=== PATIENT | male | born 1955 | race Caucasian/White ===

== ENCOUNTER 2020-08-24 10:37 | Emergency (ER) | payer MEDICARE, OTHER, SELFPAY ==
[2020-08-24 10:44] VITALS: BP 138/82; PULSE 87; RESP 18; TEMP 36.7; O2SAT 99; BMI 32.1
--- NOTE | 2020-08-24 13:08 | ED_ITS ---
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 States pain on the left side goes to the left flank area diffuse on the left side. There is no associated nausea vomiting or diarrhea. There is no dysuria. There is no hematuria. No fever or chills. MD elicited complaint: abdominal pain Pertinent past history: diverticulitis Onset (ago): week(s) Pain Consistency: constant Location: LUQ and LLQ Severity: mild Quality: aching Radiation: L flank Migration to: LUQ, LLQ and L flank Exacerbating factors: nothing Relieving factors: nothing Associated symptoms: denies other symptoms Related Data Previous Rx's Medication Instructions Recorded dicyclomine 20 mg PO BID #20 tab 08/24/20 oxycodone-acetaminophen [Percocet] 1 tab PO Q8H PRN #7 tab 08/24/20 Allergies Allergy/AdvReac Type Severity Reaction Status Date / Time metformin [METFORMIN] AdvReac Intermediate DIARRHEA Verified 08/24/20 14:03 clopidogrel [From PLAVIX] AdvReac Unknown HEADACHES Verified 08/24/20 14:03 Review of Systems Review of Systems Constitutional: No Weight loss, No Fever, No Chills, No Night Sweats, No Fatigue, No Malaise ENT/Mouth: No Hearing loss, No Ear Pain, No Nasal Congestion, No Sinus Pain, No Hoarseness, No sore throat, No Rhinorrhea, No Swallowing Difficulty Eyes: No Eye Pain, No Swelling, No Redness, No Foreign Body, No Discharge, No Vision Changes Cardiovascular: No Chest Pain, No SOB, No Dyspnea on Exertion, No Orthopnea, No Edema, No Palpitations Respiratory: No Cough, No Sputum, No Wheezing, No Smoke Exposure, No Dyspnea Gastrointestinal: No Nausea, No Vomiting, No Diarrhea, No Constipation, + abdominal Pain, No Hematochezia, No Melena Genitourinary: no irregular bleeding, No Dysuria, No Urinary Frequency, No Hematuria, No Urinary Incontinence, No Urgency, No Flank Pain, No Urinary Flow Changes, No Hesitancy Musculoskeletal: No joint pain, No Myalgias, No Joint Swelling Skin: No Skin Lesions, No rash Neuro: No Weakness, No Numbness, No Paresthesias, No Loss of Consciousness, No Dizziness, No Headache Psych: No Anxiety/Panic, No Depression, No SI/HI/AH/VH, No Social Issues, Heme/Lymph: No Bruising, No Bleeding,No Lymphadenopathy Endocrine: No Polyuria, No Polydipsia, No Temperature Intolerance Yes all other systems are reviewed and are negative Physical Exam Vital Signs: Vital Signs: Vital Signs Temp Pulse Resp BP Pulse Ox 08/24/20 13:55 98.3 F 84 18 119/78 08/24/20 10:44 98.0 F 87 18 138/82 99 Body Mass Index 32.1 Const: General: cooperative and healthy appearing; No acute distress or intox icated appearing Nutritional Appearance: average body habitus Orientation/consciousness: patient oriented x3 HENMT: Head: Yes normal to inspection Ears: hearing grossly normal bilaterally Eyes: General: appearance normal, both eyes and all related structures Visual Prajapati: normal visual prajapati by confrontation Neck: Neck: Yes normal visual inspection and No tender Thyroid: Thyroid normal Chest: Chest palpation & inspection: normal inspection of the chest Resp: Effort & Inspection: normal respiratory effort Cardio: Jugular venous distension: no JVD GI: Inspection: Yes normal to inspection Percussion: Yes normal to percussion Auscultation: normal bowel sounds : General: Yes no CVA tenderness Back/Spine/Pelvis: Back: no CVA tenderness Skin: General skin exam: no rashes or lesions noted Neuro: General: patient oriented x3 Extrem: General: Yes normal to inspection Course Course Course Narrative: Labs shows minimal leukocytosis of 11 otherwise baseline labs. Slightly elevated renal function of 1.4 2 previous in May was 1.6 with GFR of 5 0. Given [address] of the abdomen shows colonic diverticulosis without evidence of diverticulitis. Other chronic findings as noted in the body of the report below. The vascular involvement lactic acid negative. Abdominal exam is benign. No peritonitis. Will discharge home with Bentyl and pain medication with instructions for close follow-up with his primary care doctor. He goes to [place] for this reason copy of his blood work and CT scan will be provided to him to take to his next appointment. Otherwise he reports minimal to no pain at this time. Stable for discharge. MDM - Abdominal Pain MDM Narrative Medical decision making narrative: Will check labs including lactic acid, CT of the abdomen with IV contrast. At this time mild to minimal pain does not want anything for pain at this time. Overall nontoxic appearing. No acute surgical abdomen on exam. Differential Diagnosis Differential diagnosis: Likely abdominal pain, calculus of kidney, diverticulitis, gastroenteritis, gastritis, mesenteric ischemia and renal colic; Unlikely aortic dissection, acute appendicitis, bowel perforation, constipation, pancreatitis, peptic ulcer disease and small bowel obstruction Lab Data Result diagrams: 08/24/20 13:29 08/24/20 13:28 Labs: Lab Results 08/24/20 08/24/20 08/24/20 Range/Units 13:28 13:29 13:29 WBC (4.8-10.8) X10*3/uL RBC (4.60-5.80) X10*6/uL Hgb (14.0-18.0) g/dl Hct (42-52) % MCV (80-98) fL MCH (27.0-33.0) pg MCHC (31.0-36.0) g/dl RDW (11.0-16.0) % Plt Count (160-400) X10*3/uL MPV (9.4-12.4) fL Immature Gran % (Auto) (0.0-0.4) % Neut % (Auto) (45-73) % Lymph % (Auto) (20-40) % [place] % (Auto) (2-11) % Eos % (Auto) (0-4) % Baso % (Auto) (0-2) % Lymph # (Auto) (1.2-4.9) X10*3/uL [place] # (Auto) (0.1-1.2) X10*3/uL Eos # (Auto) (0.0-0.4) X10*3/uL Baso # (Auto) (0.0-0.2) X10*3/uL Abs Immat Gran (auto) (0.00-0.03) X10*3/uL Absolute Neuts (auto) (2.0-8.3) X10*3/uL Absolute Nucleated RBC (0.0-0.012) X10*3/uL Nucleated RBC % (auto) (0.0-0.2) /100WBC PT 13.5 H (10.8-13.0) SEC INR 1.1 (0.9-1.1) APTT 38.9 H (24.1-38.0) SEC Hold Blue Top Sodium 140 (135-145) mmol/L Potassium 4.6 (3.3-5.1) mmol/l Chloride 104 (96-108) mmol/L Carbon Dioxide 29 (22-29) mmol/L Anion Gap 12 (12-20) BUN 13 (9-16) mg/dL Creatinine 1.42 H (0.5-1.4) mg/dL Estim Creat Clear Calc 55.6 Estimated GFR 50 Random Glucose 122 H (60-115) mg/dL Lactic Acid 1.6 (0.5-2.0) mmol/L Calcium 9.6 (8.4-10.2) mg/dL Total Bilirubin 0.7 (0.0-1.0) mg/dL AST 19 (5-37) U/L ALT 27 (0-40) U/L Alkaline Phosphatase 80 (39-117) U/L Total Protein 8.2 H (6.5-8.0) g/dL Albumin 4.7 (3.5-5.0) g/dL Urine Color Urine Appearance Urine pH (5.0-8.0) Ur Specific [place] (1.005-1.025) Urine Protein (NEG-TRACE) MG/DL Urine Glucose (UA) (NEG) MG/DL Urine Ketones (NEG) MG/DL Urine Blood (NEG) Urine Nitrite (NEG) Ur Leukocyte Esterase (NEG) 08/24/20 08/24/20 08/24/20 Range/Units 13:29 13:29 13:31 WBC 10.9 H (4.8-10.8) X10*3/uL RBC 5.37 (4.60-5.80) X10*6/uL Hgb 18.2 H (14.0-18.0) g/dl Hct 52.9 H (42-52) % MCV 98.5 H (80-98) fL MCH 33.9 H (27.0-33.0) pg MCHC 34.4 (31.0-36.0) g/dl RDW 14.4 (11.0-16.0) % Plt Count 107 L (160-400) X10*3/uL MPV 8.9 L (9.4-12.4) fL Immature Gran % (Auto) 0.2 (0.0-0.4) % Neut % (Auto) 74.0 H (45-73) % Lymph % (Auto) 18.1 L (20-40) % [place] % (Auto) 6.9 (2-11) % Eos % (Auto) 0.6 (0-4) % Baso % (Auto) 0.2 (0-2) % Lymph # (Auto) 2.0 (1.2-4.9) X10*3/uL [place] # (Auto) 0.8 (0.1-1.2) X10*3/uL Eos # (Auto) 0.1 (0.0-0.4) X10*3/uL Baso # (Auto) 0.0 (0.0-0.2) X10*3/uL Abs Immat Gran (auto) 0.02 (0.00-0.03) X10*3/uL Absolute Neuts (auto) 8.1 (2.0-8.3) X10*3/uL Absolute Nucleated RBC 0.000 (0.0-0.012) X10*3/uL Nucleated RBC % (auto) 0.0 (0.0-0.2) /100WBC PT (10.8-13.0) SEC INR (0.9-1.1) APTT (24.1-38.0) SEC Hold Blue Top SEE NOTE Sodium (135-145) mmol/L Potassium (3.3-5.1) mmol/l Chloride (96-108) mmol/L Carbon Dioxide (22-29) mmol/L Anion Gap (12-20) BUN (9-16) mg/dL Creatinine (0.5-1.4) mg/dL Estim Creat Clear Calc Estimated GFR Random Glucose (60-115) mg/dL Lactic Acid (0.5-2.0) mmol/L Calcium (8.4-10.2) mg/dL Total Bilirubin (0.0-1.0) mg/dL AST (5-37) U/L ALT (0-40) U/L Alkaline Phosphatase (39-117) U/L Total Protein (6.5-8.0) g/dL Albumin (3.5-5.0) g/dL Urine Color YELLOW Urine Appearance CLEAR Urine pH 5.5 (5.0-8.0) Ur Specific [place] >= 1.030 H (1.005-1.025) Urine Protein NEG (NEG-TRACE) MG/DL Urine Glucose (UA) NEG (NEG) MG/DL Urine Ketones NEG (NEG) MG/DL Urine Blood NEG (NEG) Urine Nitrite NEG (NEG) Ur Leukocyte Esterase NEG (NEG) Imaging Data CT scan - abdomen: Radiologist's impression: [place] [id number] CT Scan Report Signed Patient: Sharath Quinn JMR#: [id number] : 4Acct:[id number] Age/Sex: 65 / MADM Date: 08/24/20 Loc: .ED Attending Dr: Ordering Physician: Ad Mcadams NP Date of Service: 08/24/20 Procedure(s): CT abdomen pelvis w con Accession Number(s): [id number] cc: Ad Mcadams [employer]~ EXAMINATION: CT ABDOMEN AND PELVIS WITH CONTRAST CLINICAL INFORMATION: Abdominal pain. COMPARISON: 08/15/2016 TECHNIQUE: Multidetector volumetric images were obtained from the superior aspect of the liver through the pubic symphysis following administration 85 mL of Omnipaque 350 intravenous contrast. Sagittal and coronal reformatted images were obtained on the technologist's workstation. Oral contrast: No This CT examination was performed using dose optimization techniques as appropriate, variously including the following: *Automated exposure control *Adjustment of mA and/or kV according to patient size (this includes techniques or standardized protocols for targeted exams where dose is matched to indication/reason for exam; i.e. extremities or head) *Use of iterative reconstruction technique DLP: 598 mGy-cm FINDINGS: LUNG BASES: Mild bibasilar atelectasis. LIVER, GALLBLADDER, AND BILIARY TREE: The liver is normal in size, shape, and attenuation. No focal hepatic lesion or biliary ductal dilatation is present. Redemonstrated is soft tissue prominence of the fundus of the bladder, reference image 3:22, image 5:37, appearing similar as compared to the prior study. No radiodense gallstones or acute inflammatory changes seen. PANCREAS: Unremarkable. SPLEEN: Unremarkable. ADRENAL GLANDS: Unremarkable. KIDNEYS AND URETERS: No evidence of renal or ureteral calculi. No hydronephrosis. Small hypodense lesion in the upper pole right kidney, too small to characterize, could represent a small cyst. BLADDER: Underdistended without gross abnormality. GASTROINTESTINAL TRACT: Evidence of prior surgery in the sigmoid colon. There is colonic diverticulosis, particularly involving the descending and sigmoid colon. No significant pericolonic inflammatory changes suggest definite diverticulitis. Stomach is nondistended. No dilated small bowel loops. No free fluid or free air. ABDOMINAL WALL: Multiple areas of paramidline anterior abdominal wall hernias containing fat with some haziness in the fat. For example, right paramidline anterior abdominal wall hernia image 3:51 with a neck of 3.7 cm transverse. LYMPH NODES: No pathologically enlarged lymph nodes are seen. VASCULAR: Extensive atherosclerosis of the abdominal and iliac vasculature. Redemonstrated is a left aortic-femoral bypass graft. Redemonstrated is a femoral-femoral bypass graft. PELVIC VISCERA: Prostate measures 3.9 cm transverse. OSSEOUS STRUCTURES: Multilevel degenerative changes in the spine. No acute osseous abnormality. IMPRESSION: 1. Colonic diverticulosis without evidence of definite diverticulitis. 2. Soft tissue prominence in the fundus of the gallbladder. Similar findings are seen in the prior ct of 08/15/2016. Recommend follow-up nonemergent ultrasound to further characterize. 3. Multifocal areas of ventral abdominal wall hernias containing fat, with stranding within the fat. The largest has a neck of approximately 3.7 cm transverse. 4. Evidence of prior vascular bypass surgery. Further evaluation with follow-up CTA as clinically warranted. Dictated By:LAURA CHOI MD Signed By:<Electronically signed by LAURA CHOI MD in OV>08/24/20 1520 DD/ 1306 TD/TT: Director [employer]: LIYA Discharge Plan Discharge Clinical Impression: Abdominal pain Qualifiers: Abdominal location: left lower quadrant Qualified Code(s): R10.32 - Left lower quadrant pain Patient Disposition: Home, Self-Care Instructions: Diverticulosis (ED) Additional Instructions: Your blood work was overall stable today CT scan of your abdomen with IV contrast showed colonic diverticulosis but no diverticulitis Schedule follow-up with her primary care doctor in 3-4 days or your GI doctor Pain medication prescribed Copy of your blood work and CT scan were provided to you Follow up as instructed Return if any concerns or worsening symptoms Thank you Prescriptions: New dicyclomine 20 mg tablet 20 mg PO BID Qty: 20 RF: 0 oxycodone-acetaminophen [Percocet] 5-325 mg tablet 1 tab PO Q8H PRN (Reason: pain) Qty: 7 RF: 0 Referrals: Physician,Unknown [Primary Care Provider] - 2 days (Follow-up with your primary care doctor at [place] in the next 2 to 4 days days Copy of your blood work and CT scan was provided to) [facility] Past Medical History Attestation statement: The following information was validated with the patient. Medical History (Updated 08/24/20 @ 16:02 by Ad Mcadams NP) Diabetes Diverticulitis Social History Social History Advance Directives: No Advance Directives Information Provided: No
[2020-08-24 13:37] LABS: MANUAL DIFF FLAG NO
[2020-08-24 13:39] LABS: Basophils Percent Auto 0.2 % (0-2); Eosinophils Absolute Auto 0.1 X10*3/uL (0.0-0.4); Eosinophils Percent Auto 0.6 % (0-4); Hematocrit 52.9 % (42-52); Hemoglobin 18.2 g/dl (14.0-18.0); Imm Gran Abs Auto 0.02 X10*3/uL (0.00-0.03); Imm Gran Pct Auto 0.2 % (0.0-0.4); Lymphocytes Percent Auto 18.1 % (20-40); Mean Corpuscular HGB Conc 34.4 g/dl (31.0-36.0); Mean Corpuscular Hemoglobin 33.9 pg (27.0-33.0); Mean Corpuscular Volume 98.5 fL (80-98); Mean Platelet Volume 8.9 fL (9.4-12.4); Monocytes Absolute Auto 0.8 X10*3/uL (0.1-1.2); Monocytes Percent Auto 6.9 % (2-11); Neutrophils Absolute Auto 8.1 X10*3/uL (2.0-8.3); Platelet Count 107 X10*3/uL (160-400); Red Blood Count 5.37 X10*6/uL (4.60-5.80); Red Cell Distribution Width 14.4 % (11.0-16.0); White Blood Count 10.9 X10*3/uL (4.8-10.8)
[2020-08-24 13:47] LABS: INTERNATIONAL NORM RATIO 1.1 (0.9-1.1); Prothrombin Time 13.5 SEC (10.8-13.0)
[2020-08-24 13:50] LABS: Partial Thromboplastin Time 38.9 SEC (24.1-38.0)
[2020-08-24 13:54] LABS: Glucose Urine UA NEG (NEG); Leukocyte Esterase Urine NEG (NEG); Nitrite Urine NEG (NEG); PH 5.5 (5.0-8.0); Specific Gravity - Urine >= 1.030 (1.005-1.025); Urine Blood NEG (NEG); Urine Ketones NEG (NEG); Urine Protein NEG (NEG-TRACE)
[2020-08-24 13:55] VITALS: BP 119/78; PULSE 84; RESP 18; TEMP 36.8
[2020-08-24 13:56] LABS: Appearance Urine CLEAR; Color Urine YELLOW
[2020-08-24 13:58] LABS: Lactic Acid 1.6 mmol/L (0.5-2.0)
[2020-08-24 14:01] LABS: Alanine Aminotransferase 27 U/L (0-40); Albumin Level 4.7 g/dL (3.5-5.0); Alkaline Phosphatase 80 U/L (39-117); Anion Gap 12 (12-20); Aspartate Amino Transferase 19 U/L (5-37); Bilirubin Total 0.7 mg/dL (0.0-1.0); Blood Urea Nitrogen 13 mg/dL (9-16); Calcium 9.6 mg/dL (8.4-10.2); Carbon Dioxide 29 mmol/L (22-29); Chloride 104 mmol/L (96-108); Creatinine Clr Calc Pharmacy 55.6; Estimated Glomerular Filt Rate 50; Glucose Random 122 mg/dL (60-115); Potassium 4.6 mmol/l (3.3-5.1); Sodium 140 mmol/L (135-145); Total Protein 8.2 g/dL (6.5-8.0)
[2020-08-24] MEDS: 0.9 % Sodium Chloride 1,000 ML 999 ML IVCONT (14:05)
--- NOTE | 2020-08-24 14:05 | PC.NURSE ---
NS 1L BOLUS BAG SCANNED X 7 TIMES
[2020-08-24] MEDS: iohexoL 350 MG/ML 100 ML INFUS..BTL IV (14:28)
== END 2020-08-24 16:20 | disposition home or self-care (01) ==
PROVIDERS: Nurse Practitioner Primary Care; Emergency Provider Emergency Medicine
DX: K57.30 Diverticulosis of large intestine without perforation or abscess without bleeding (principal); E11.9 Type 2 diabetes mellitus without complications
CPT/HCPCS: 36415; 74177; 80053; 81003; 83605; 85025; 85610; 85730; 96360; 99284

== ENCOUNTER → 2020-12-01 13:33 | Outpatient (BNV) | payer MEDICARE, OTHER, SELFPAY | PROVIDERS: PCP Internal Medicine; Visit Provider Internal Medicine | DX: I82.402 Acute embolism and thrombosis of unspecified deep veins of left lower extremity (principal) | CPT/HCPCS: 99212; 99214 ==

== ENCOUNTER 2020-12-15 11:55 | Outpatient (REF) | payer MEDICARE, OTHER, SELFPAY | END 2020-12-15 11:56 | disposition home or self-care (01) | LOC: HO.LAB 11:55 | PROVIDERS: Visit Provider Internal Medicine | DX: Z20.822 Contact with and (suspected) exposure to COVID-19 (principal) | CPT/HCPCS: 36415; C9803; U0003; U0005 ==

== ENCOUNTER 2021-06-24 10:27 | Emergency (ER) | payer MEDICARE, OTHER, SELFPAY ==
--- NOTE | ~2021-06-24 | CT_ITS ---
EXAMINATION: CT ABDOMEN AND PELVIS WITHOUT CONTRAST CLINICAL INFORMATION: Right flank and low back pain. On Eliquis. COMPARISON: CT abdomen and pelvis with contrast 08/24/2020, 08/15/2016 TECHNIQUE: Multidetector volumetric imaging was performed from the superior aspect of the liver through the pubic symphysis. No oral or intravenous contrast. Sagittal and coronal reformatted images were obtained on the technologist's workstation. This CT examination was performed using dose optimization techniques as appropriate, variously including the following: *Automated exposure control *Adjustment of mA and/or kV according to patient size (this includes techniques or standardized protocols for targeted exams where dose is matched to indication/reason for exam; i.e. extremities or head) *Use of iterative reconstruction technique DLP: 537 mGy-cm FINDINGS: LUNG BASES: The visualized lung bases are unremarkable. LIVER, GALLBLADDER, AND BILIARY TREE: The normal in size and smooth in contour. Parenchyma homogeneous. No focal hepatic parenchymal lesion or intrahepatic ductal dilatation. The gallbladder is normal in size and shows no stone or wall thickening. There is no thickening of the fundus as suggested on prior exams. No pericholecystic inflammatory changes. Common duct unremarkable. PANCREAS: Unremarkable. SPLEEN: Unremarkable. ADRENAL GLANDS: Unremarkable. KIDNEYS AND URETERS: The kidneys are normal in size and show no hydronephrosis, calculi, hydroureter, or perinephric stranding. BLADDER: Unremarkable. GASTROINTESTINAL TRACT: No bowel obstruction or focal inflammatory changes in bowel or mesentery. Normal appendix. There is anastomosis suggested mid sigmoid. Scattered diverticula are present in the colon without diverticulitis. No ascites or fluid collection. ABDOMINAL WALL: Mild diastases rectus with several small fat-containing ventral hernias. No significant hernia demonstrated. LYMPH NODES: No lymphadenopathy. No retroperitoneal hematoma. VASCULAR: Aorta left femoral graft with femoral to femoral bypass graft anterior pelvis similar to prior exams. PELVIC VISCERA: Unremarkable. OSSEOUS STRUCTURES: No acute bony abnormality. Multilevel degenerative changes spine. CT/CT abdomen pelvis wo con IMPRESSION: 1. No inflammatory changes in abdomen or pelvis. No obstruction or ascites. Normal appendix. 2. Unremarkable gallbladder. No biliary ductal dilatation. 3. No hydronephrosis, calculi, or perinephric stranding. No retroperitoneal hematoma..
--- NOTE | 2021-06-24 10:44 | ED.BACK ---
HPI - Back Pain/Injury General Chief Complaint: Back Pain/Injury Stated Complaint: back pain Time Seen by Provider: 06/24/21 10:43 Source: patient and old records reviewed Mode of arrival: ambulatory Limitations: no limitations History of Present Illness MD elicited complaint: back pain Pertinent past history: prior back pain Onset (ago): week(s) (2) Severity: moderate Similar Symptoms Previously: Yes Quality: sharp Location: lumbar spine Radiation: none Exacerbating factors: movement, walking and lifting Relieving factors: immobilization Context: unknown Associated symptoms: denies other symptoms Treatments prior to arrival: other ([facility] doctor put him on cipro/flagyl and tramadol in case the pain was related to his diverticulitis) Work related injury: No Related Data Home Medications Medication Instructions Recorded Confirmed albuterol sulfate 90 mcg/actuation 1 puff INHALATION BID 12/01/20 12/01/20 aerosol inhaler amitriptyline 25 mg tablet 1 tab PO BEDTIME 12/01/20 12/01/20 apixaban 5 mg tablet (Eliquis) 1 tab PO BID 12/01/20 12/01/20 atorvastatin 20 mg tablet 1 tab PO DAILY 12/01/20 12/01/20 ergocalciferol (vitamin D2) 1,250 1,250 mcg PO QMONTH 12/01/20 12/01/20 mcg (50,000 unit) capsule (Vitamin D2) fluticasone propionate 110 1 puff INHALATION BID 12/01/20 12/01/20 mcg/actuation HFA aerosol inhaler (Flovent HFA) folic acid 1 mg tablet 1 tab PO DAILY 12/01/20 12/01/20 glipizide 2.5 mg tablet, extended 2.5 mg PO BID 12/01/20 12/01/20 release 24 hr latanoprost 0.005 % eye drops 1 drp OPHTHALMIC (EYE) BID 12/01/20 03/30/21 sitagliptin 100 mg tablet (Januvia) 1 tab PO DAILY 12/01/20 12/01/20 Previous Rx's Medication Instructions Recorded diazepam 5 mg tablet (Valium) 5 mg PO TID PRN #10 tab 06/24/21 lidocaine 4 % topical patch 1 patch TOPICAL DAILY PRN #10 ea 06/24/21 Allergies Allergy/AdvReac Type Severity Reaction Status Date / Time metformin [METFORMIN] AdvReac Intermediate DIARRHEA Verified 08/24/20 14:03 clopidogrel [From PLAVIX] AdvReac Unknown HEADACHES Verified 08/24/20 14:03 Review of Systems Review of Systems: Constitutional : No Weight loss, No Fever, No Chills, ENT/Mouth : No Hearing loss, No Ear Pain, No Nasal Congestion, No Sinus Pain, No Hoarseness, No sore throat, No Rhinorrhea, No Swallowing Difficulty Cardiovascular : No Chest Pain, No SOB Respiratory : No Cough, No Dyspnea Gastrointestinal : No Nausea, No Vomiting, No Diarrhea, No abdominal Pain, No Hematochezia, No Melena Genitourinary : No Dysuria, No Urinary Frequency, No Hematuria, No Urinary Incontinence, Musculoskeletal : positive back pain Skin : No Skin Lesions, No rash Neuro : No Weakness, No Numbness, No Paresthesias, no loss of bowel or bladder incontinence, no saddle anesthesia all other systems reviewed and are negative PMF Past Medical History Attestation statement: The following information was validated with the patient. Medical History (Updated 06/24/21 @ 12:38 by Macy Alegre DO) Bakers cyst Diabetes Diverticulitis DVT (deep venous thrombosis) Hernia, abdominal Inguinal hernia Skin cancer of forehead Surgical History H/O aorto-femoral bypass H/O heart bypass surgery Hx of plastic surgery Family History Family History (Updated 12/01/20 @ 14:21 by Rhiannon Nicolas RN) Mother Breast cancer Heart disease Father Lung cancer Social History Social History Alcohol intake: former Cigarette Packs Per Day: 1 Years Smoked: 50 Advance Directives: No Advance Directives Information Provided: No Physical Exam Vital Signs: Vital Signs: Last Vital Signs Temp 98 F 06/24/21 10:54 Pulse 100 06/24/21 10:54 Resp 19 06/24/21 10:54 BP 162/89 H 06/24/21 10:54 Pulse Ox 92 06/24/21 10:54 Body Mass Index 32.1 Appearance: Alert. Oriented X3. No acute distress. Eyes: Pupils equal, round and reactive to light. ENT: Pharynx normal. Neck: Normal inspection. Neck supple. CVS: Normal heart rate and rhythm. Pulses normal. Respiratory: No respiratory distress. Breath sounds normal. Abdomen: Soft and nontender. Back: R sided low lumbar ttp reproduces pain along with movement Skin: Skin warm and dry. Normal skin color. Normal skin turgor. Extremities: No lower extremity edema. No calf ttp Neuro: Oriented X 3. No motor deficit. No sensory deficit. SILT inner thigh L5/5 bilaterally Course Course Course Narrative: baseline labs, CT scan unremarkable stable for DC MDM - Back Pain/Injury MDM Narrative Medical decision making narrative: 66 yo male hx of PVD s/p aortfem bypass, DM, dVT on eliquis, diverticulitis hx of resection comes in with 2 weeks of R low back pain denies trauma, no b/b incontinence no saddle anesthesia NV intact doubt CE syndrome, 7 days ago his doctor started him on tramadol, cipro/flagyl in case this was his diverticulitis but it is not improving, at this time labs, UA, CT scan for renal colic/retroperitoneal hematoma, PO pain control, dispo per results and findings Lab Data Result diagrams: 06/24/21 12:00 06/24/21 11:59 Labs: Lab Results 06/24/21 06/24/21 06/24/21 Range/Units 11:59 11:59 12:00 WBC 8.7 (4.8-10.8) X10*3/uL RBC 5.16 (4.60-5.80) X10*6/uL Hgb 17.4 (14.0-18.0) g/dl Hct 50.1 (42-52) % MCV 97.1 (80-98) fL MCH 33.7 H (27.0-33.0) pg MCHC 34.7 (31.0-36.0) g/dl RDW 13.2 (11.0-16.0) % Plt Count 89 L (160-400) X10*3/uL MPV 9.1 L (9.4-12.4) fL Immature Gran % (Auto) 0.3 (0.0-0.4) % Neut % (Auto) 77.7 H (45-73) % Lymph % (Auto) 13.2 L (20-40) % [place] % (Auto) 8.5 (2-11) % Eos % (Auto) 0.2 (0-4) % Baso % (Auto) 0.1 (0-2) % Lymph # (Auto) 1.1 L (1.2-4.9) X10*3/uL [place] # (Auto) 0.7 (0.1-1.2) X10*3/uL Eos # (Auto) 0.0 (0.0-0.4) X10*3/uL Baso # (Auto) 0.0 (0.0-0.2) X10*3/uL Abs Immat Gran (auto) 0.03 (0.00-0.03) X10*3/uL Absolute Neuts (auto) 6.7 (2.0-8.3) X10*3/uL Absolute Nucleated RBC 0.000 (0.0-0.012) X10*3/uL Nucleated RBC % (auto) 0.0 (0.0-0.2) /100WBC PT 16.5 H (9.9-13.0) SEC INR 1.4 H (0.9-1.1) APTT 39.1 H (24.1-38.0) SEC Sodium 139 (135-145) mmol/L Potassium 4.0 (3.3-5.1) mmol/L Chloride 108 (96-108) mmol/L Carbon Dioxide 22 (22-29) mmol/L Anion Gap 13 (12-20) BUN 11 (9-16) mg/dL Creatinine 1.61 H (0.5-1.4) mg/dL Estim Creat Clear Calc 48.3 Estimated GFR 43 Random Glucose 205 H (60-115) mg/dL Calcium 8.9 (8.4-10.2) mg/dL Urine Color Urine Appearance Urine pH (5.0-8.0) Ur Specific [place] (1.005-1.025) Urine Protein (NEG-TRACE) MG/DL Urine Glucose (UA) (NEG) MG/DL Urine Ketones (NEG) MG/DL Urine Blood (NEG) Urine Nitrite (NEG) Ur Leukocyte Esterase (NEG) 06/24/21 Range/Units 12:00 WBC (4.8-10.8) X10*3/uL RBC (4.60-5.80) X10*6/uL Hgb (14.0-18.0) g/dl Hct (42-52) % MCV (80-98) fL MCH (27.0-33.0) pg MCHC (31.0-36.0) g/dl RDW (11.0-16.0) % Plt Count (160-400) X10*3/uL MPV (9.4-12.4) fL Immature Gran % (Auto) (0.0-0.4) % Neut % (Auto) (45-73) % Lymph % (Auto) (20-40) % [place] % (Auto) (2-11) % Eos % (Auto) (0-4) % Baso % (Auto) (0-2) % Lymph # (Auto) (1.2-4.9) X10*3/uL [place] # (Auto) (0.1-1.2) X10*3/uL Eos # (Auto) (0.0-0.4) X10*3/uL Baso # (Auto) (0.0-0.2) X10*3/uL Abs Immat Gran (auto) (0.00-0.03) X10*3/uL Absolute Neuts (auto) (2.0-8.3) X10*3/uL Absolute Nucleated RBC (0.0-0.012) X10*3/uL Nucleated RBC % (auto) (0.0-0.2) /100WBC PT (9.9-13.0) SEC INR (0.9-1.1) APTT (24.1-38.0) SEC Sodium (135-145) mmol/L Potassium (3.3-5.1) mmol/L Chloride (96-108) mmol/L Carbon Dioxide (22-29) mmol/L Anion Gap (12-20) BUN (9-16) mg/dL Creatinine (0.5-1.4) mg/dL Estim Creat Clear Calc Estimated GFR Random Glucose (60-115) mg/dL Calcium (8.4-10.2) mg/dL Urine Color YELLOW Urine Appearance CLEAR Urine pH 5.5 (5.0-8.0) Ur Specific [place] 1.025 (1.005-1.025) Urine Protein NEG (NEG-TRACE) MG/DL Urine Glucose (UA) 500 H (NEG) MG/DL Urine Ketones NEG (NEG) MG/DL Urine Blood NEG (NEG) Urine Nitrite NEG (NEG) Ur Leukocyte Esterase NEG (NEG) Discharge Plan Discharge Clinical Impression: Strain of lumbar region Qualifiers: Encounter type: initial encounter Qualified Code(s): S39.012A - Strain of muscle, fascia and tendon of lower back, initial encounter Patient Disposition: Home, Self-Care Instructions: Back Pain (ED) Additional Instructions: return to ED for any worsening symptoms or concerns STOP TAKING TRAMADOL, CALL YOUR DOCTOR FOR PHYSICAL THERAPY AND POSSIBLE MRI OF BACK CT scan was normal no signs of diverticulitis, bleeding or mass Prescriptions: New lidocaine 4 % adhesive patch,medicated 1 patch topical DAILY PRN (Reason: pain) Qty: 10 RF: 0 diazepam [Valium] 5 mg tablet 5 mg PO TID PRN (Reason: muscle spasm) Qty: 10 RF: 0 No Action latanoprost 0.005 % drops 1 drp ophthalmic (eye) BID RF: 0 atorvastatin 20 mg tablet 1 tab PO DAILY RF: 0 amitriptyline 25 mg tablet 1 tab PO BEDTIME RF: 0 glipizide 2.5 mg tablet extended release 24hr 2.5 mg PO BID RF: 0 folic acid 1 mg tablet 1 tab PO DAILY RF: 0 ergocalciferol (vitamin D2) [Vitamin D2] 1,250 mcg (50,000 unit) capsule 1,250 mcg PO QMONTH RF: 0 albuterol sulfate 90 mcg/actuation HFA aerosol inhaler 1 puff inhalation BID RF: 0 Flovent HFA 110 mcg/actuation HFA aerosol inhaler 1 puff inhalation BID RF: 0 Januvia 100 mg tablet 1 tab PO DAILY RF: 0 Eliquis 5 mg tablet 1 tab PO BID RF: 0 Referrals: Physician,Unknown [Primary Care Provider] - 2 days
[2021-06-24 10:54] VITALS: BP 162/89; PULSE 100; RESP 19; TEMP 36.6; O2SAT 92; BMI 32.1
[2021-06-24 12:04] LABS: MANUAL DIFF FLAG NO
[2021-06-24 12:06] LABS: Basophils Percent Auto 0.1 % (0-2); Eosinophils Percent Auto 0.2 % (0-4); Hematocrit 50.1 % (42-52); Hemoglobin 17.4 g/dl (14.0-18.0); Imm Gran Abs Auto 0.03 X10*3/uL (0.00-0.03); Imm Gran Pct Auto 0.3 % (0.0-0.4); Lymphocytes Absolute Auto 1.1 X10*3/uL (1.2-4.9); Lymphocytes Percent Auto 13.2 % (20-40); Mean Corpuscular HGB Conc 34.7 g/dl (31.0-36.0); Mean Corpuscular Hemoglobin 33.7 pg (27.0-33.0); Mean Corpuscular Volume 97.1 fL (80-98); Mean Platelet Volume 9.1 fL (9.4-12.4); Monocytes Absolute Auto 0.7 X10*3/uL (0.1-1.2); Monocytes Percent Auto 8.5 % (2-11); Neutrophils Absolute Auto 6.7 X10*3/uL (2.0-8.3); Neutrophils Percent Auto 77.7 % (45-73); Platelet Count 89 X10*3/uL (160-400); Red Blood Count 5.16 X10*6/uL (4.60-5.80); Red Cell Distribution Width 13.2 % (11.0-16.0); White Blood Count 8.7 X10*3/uL (4.8-10.8)
[2021-06-24 12:11] LABS: Glucose Urine UA 500 MG/DL (NEG); Leukocyte Esterase Urine NEG (NEG); Nitrite Urine NEG (NEG); PH 5.5 (5.0-8.0); Specific Gravity - Urine 1.025 (1.005-1.025); Urine Blood NEG (NEG); Urine Ketones NEG (NEG); Urine Protein NEG (NEG-TRACE)
[2021-06-24 12:12] LABS: INTERNATIONAL NORM RATIO 1.4 (0.9-1.1); Prothrombin Time 16.5 SEC (9.9-13.0)
[2021-06-24 12:14] LABS: Partial Thromboplastin Time 39.1 SEC (24.1-38.0)
[2021-06-24 12:16] LABS: Appearance Urine CLEAR; Color Urine YELLOW
--- NOTE | 2021-06-24 12:23 | PC.NURSE ---
float nurse offered ordered pain meds to pt, pt sts he is driving home and has no ride. aware.
[2021-06-24 12:36] LABS: Anion Gap 13 (12-20); Blood Urea Nitrogen 11 mg/dL (9-16); Calcium 8.9 mg/dL (8.4-10.2); Carbon Dioxide 22 mmol/L (22-29); Chloride 108 mmol/L (96-108); Creatinine Clr Calc Pharmacy 48.3; Estimated Glomerular Filt Rate 43; Glucose Random 205 mg/dL (60-115); Sodium 139 mmol/L (135-145)
== END 2021-06-24 12:47 | disposition home or self-care (01) ==
PROVIDERS: Emergency Provider Emergency Medicine
DX: S39.012A Strain of muscle, fascia and tendon of lower back, initial encounter (principal); X58.XXXA Exposure to other specified factors, initial encounter; E11.9 Type 2 diabetes mellitus without complications; Y93.9 Activity, unspecified; Y92.9 Unspecified place or not applicable; Y99.9 Unspecified external cause status; Z86.718 Personal history of other venous thrombosis and embolism; Z79.01 Long term (current) use of anticoagulants
CPT/HCPCS: 36415; 74176; 80048; 81003; 85025; 85610; 85730; 99283; 99284

== ENCOUNTER 2021-08-20 09:39 | Emergency (ER) | payer MEDICARE, OTHER, SELFPAY ==
--- NOTE | ~2021-08-20 | XR_ITS ---
EXAMINATION: XR CHEST CLINICAL INFORMATION: Shortness of breath COMPARISON: Previous chest x-ray December 2020 and CTA of the chest February 2018 TECHNIQUE: Frontal view of the chest was obtained. FINDINGS: The cardiac and mediastinal contours are normal. The lungs are clear. There is no pleural effusion or pneumothorax. There are degenerative changes of the spine. XR/XR chest 1V IMPRESSION: Unremarkable examination.
[2021-08-20 09:57] VITALS: BP 156/82; PULSE 88; RESP 18; TEMP 36.3; O2SAT 96; BMI 32.1
[2021-08-20 10:32] VITALS: BP 127/78; PULSE 69; RESP 18; O2SAT 96
--- NOTE | 2021-08-20 10:44 | ECG_ITS ---
Test Reason : CHEST PAIN Blood Pressure : / mmHG Vent. Rate : 066 BPM Atrial Rate : 066 BPM P-R Int : 162 ms QRS Dur : 158 ms QT Int : 448 ms P-R-T Axes : 033 081 023 degrees QTc Int : 469 ms Normal sinus rhythm Right bundle branch block Abnormal ECG When compared with ECG of 19-FEB-2018 09:44, No significant change was found Referred By: Jessica Lawrence Electronically Signed By:JUAN GOTTLIEB MD
--- NOTE | 2021-08-20 10:44 | PC.NURSE ---
Pt presents to ED with 4 days of SOB, at this time pt appears comfortable, no increased work of breathing noted by this RN, scattered exp wheezing noted throughout. Skin color is daya. NSR on tele. Speaking full sentences. Reports productive cough with frothy clear sputum. No home 02, sat o room air 96-97%.
--- NOTE | 2021-08-20 10:45 | ED.SOB ---
HPI - SOB/Dyspnea General Chief Complaint: Dyspnea Stated Complaint: diff breathing Time Seen by Provider: 08/20/21 10:43 History of Present Illness HPI Narrative: Patient is a 66 year positive history of smoking for last 50 years. Positive coughing congestion upper respiratory symptoms getting worse the last 4 days. Baseline cough to begin with. Patient has a history of diabetes. Also history having pulmonary emboli. Currently on Eliquis. Patient taking medications for diabetes. Denies any chest pain. Denies any focal weakness no nausea no vomiting. Patient from home. Patient immunized for COVID. Related Data Home Medications Medication Instructions Recorded Confirmed albuterol sulfate 90 mcg/actuation 1 puff INHALATION BID 12/01/20 12/01/20 aerosol inhaler amitriptyline 25 mg tablet 1 tab PO BEDTIME 12/01/20 12/01/20 apixaban 5 mg tablet (Eliquis) 1 tab PO BID 12/01/20 12/01/20 atorvastatin 20 mg tablet 1 tab PO DAILY 12/01/20 12/01/20 ergocalciferol (vitamin D2) 1,250 1,250 mcg PO QMONTH 12/01/20 12/01/20 mcg (50,000 unit) capsule (Vitamin D2) fluticasone propionate 110 1 puff INHALATION BID 12/01/20 12/01/20 mcg/actuation HFA aerosol inhaler (Flovent HFA) folic acid 1 mg tablet 1 tab PO DAILY 12/01/20 12/01/20 glipizide 2.5 mg tablet, extended 2.5 mg PO BID 12/01/20 12/01/20 release 24 hr latanoprost 0.005 % eye drops 1 drp OPHTHALMIC (EYE) BID 12/01/20 03/30/21 sitagliptin 100 mg tablet (Januvia) 1 tab PO DAILY 12/01/20 12/01/20 Previous Rx's Medication Instructions Recorded diazepam 5 mg tablet (Valium) 5 mg PO TID PRN #10 tab 06/24/21 lidocaine 4 % topical patch 1 patch TOPICAL DAILY PRN #10 ea 06/24/21 azithromycin 250 mg tablet See Rx Instructions .ROUTE 08/20/21 .COMPLEX #6 tab benzonatate 100 mg capsule 100 mg PO TID #20 cap 08/20/21 (David Villagomez) prednisone 20 mg tablet 40 mg PO DAILY #10 tab 08/20/21 Allergies Allergy/AdvReac Type Severity Reaction Status Date / Time metformin [METFORMIN] AdvReac Intermediate DIARRHEA Verified 08/24/20 14:03 clopidogrel [From PLAVIX] AdvReac Unknown HEADACHES Verified 08/24/20 14:03 Review of Systems Review of Systems: Positive coughing congestion upper respiratory symptoms All systems reviewed otherwise [facility] Past Medical History Attestation statement: The following information was validated with the patient. Medical History Bakers cyst Diabetes Diverticulitis DVT (deep venous thrombosis) Hernia, abdominal Inguinal hernia Skin cancer of forehead Surgical History H/O aorto-femoral bypass H/O heart bypass surgery Hx of plastic surgery Family History Family History Mother Breast cancer Heart disease Father Lung cancer Social History Social History Alcohol intake: former Patient Tobacco Use Status: Current everyday Tobacco user Cigarette Packs Per Day: 1 Years Smoked: 50 Use of substances other than those prescribed or required for medical reasons: Yes Substance Use Type: Marijuana Advance Directives: No Advance Directives Information Provided: No Physical Exam Vital Signs: Vital Signs: Last Vital Signs Temp 97.3 F 08/20/21 09:57 Pulse 69 08/20/21 10:32 Resp 18 08/20/21 10:32 BP 127/78 08/20/21 10:32 Pulse Ox 96 08/20/21 10:32 Body Mass Index 32.1 Appearance: Alert. Oriented X3. No acute distress. Eyes: Pupils equal, round and reactive to light. ENT: Pharynx normal. Neck: Normal inspection. Neck supple. No lymph nodes noted. No crepitus CVS: Normal heart rate and rhythm. Pulses normal. Normal S1 and S2 Respiratory: No respiratory distress. Breath sounds normal. No Wheezing. No rales Abdomen: Soft and nontender. No rigidity. No distention. good BS x4 Skin: Skin warm and dry. Normal skin color. Normal skin turgor. Extremities: No lower extremity edema. Neurovascular intact to all extremities. No Lacerations. No Rash Neuro: Oriented X 3. No motor deficit. No sensory deficit. Moving all extermities. No slurred speech MDM - SOB/Dyspnea MDM Narrative Medical decision making narrative: Positive coughing upper respiratory symptoms patient received his COVID vaccine. His COVID test here in the emergency department is negative. Test for influenza also negative RSV negative. Patient's EKG showed a sinus pattern right bundle-branch block TX QT within normal limits. The right bundle branch block is old. There is no significant changes in EKG. Patient's troponin is negative. BMP is negative no evidence for congestive heart failure. Will discharge patient home on a Z-Cornelio. Steroid for few days. Currently in stable condition. Cough medication for symptom support. In stable condition. Unlikely to have PE as patient is on blood thinners. Differential Diagnosis Differential diagnosis: Likely acute exacerbation of chronic obstructive airways disease, congestive heart failure, pneumonia, pleural effusion, sleep apnea and anemia Medical Records Attestation: I reviewed the patient's medical records. Lab Data Attestation: I reviewed the patient's lab results. Result diagrams: 08/20/21 10:47 08/20/21 10:47 Labs: Lab Results 08/20/21 08/20/21 08/20/21 Range/Units 10:47 10:47 10:47 WBC 6.7 (4.8-10.8) X10*3/uL RBC 5.15 (4.60-5.80) X10*6/uL Hgb 17.4 (14.0-18.0) g/dl Hct 50.0 (42-52) % MCV 97.1 (80-98) fL MCH 33.8 H (27.0-33.0) pg MCHC 34.8 (31.0-36.0) g/dl RDW 13.0 (11.0-16.0) % Plt Count 96 L (160-400) X10*3/uL MPV 8.7 L (9.4-12.4) fL Immature Gran % (Auto) 0.3 (0.0-0.4) % Neut % (Auto) 72.8 (45-73) % Lymph % (Auto) 17.3 L (20-40) % [place] % (Auto) 8.7 (2-11) % Eos % (Auto) 0.6 (0-4) % Baso % (Auto) 0.3 (0-2) % Lymph # (Auto) 1.2 (1.2-4.9) X10*3/uL [place] # (Auto) 0.6 (0.1-1.2) X10*3/uL Eos # (Auto) 0.0 (0.0-0.4) X10*3/uL Baso # (Auto) 0.0 (0.0-0.2) X10*3/uL Abs Immat Gran (auto) 0.02 (0.00-0.03) X10*3/uL Absolute Neuts (auto) 4.8 (2.0-8.3) X10*3/uL Absolute Nucleated RBC 0.000 (0.0-0.012) X10*3/uL Nucleated RBC % (auto) 0.0 (0.0-0.2) /100WBC Sodium 140 (135-145) mmol/L Potassium 4.4 (3.3-5.1) mmol/L Chloride 110 H (96-108) mmol/L Carbon Dioxide 23 (22-29) mmol/L Anion Gap 11 L (12-20) BUN 13 (9-16) mg/dL Creatinine 1.56 H (0.5-1.4) mg/dL Estim Creat Clear Calc 49.9 Estimated GFR 45 Random Glucose 136 H (60-115) mg/dL Calcium 8.9 (8.4-10.2) mg/dL Troponin I High Sens (<3.5-35.0) ng/L B-Natriuretic Peptide (<100) pg/mL Coronavirus (PCR) NEGATIVE (Negative) Influenza Type A (PCR) NEGATIVE (Negative) Influenza Type B (PCR) NEGATIVE (Negative) RSV RNA Qual (PCR) NEGATIVE (Negative) 08/20/21 Range/Units 10:47 WBC (4.8-10.8) X10*3/uL RBC (4.60-5.80) X10*6/uL Hgb (14.0-18.0) g/dl Hct (42-52) % MCV (80-98) fL MCH (27.0-33.0) pg MCHC (31.0-36.0) g/dl RDW (11.0-16.0) % Plt Count (160-400) X10*3/uL MPV (9.4-12.4) fL Immature Gran % (Auto) (0.0-0.4) % Neut % (Auto) (45-73) % Lymph % (Auto) (20-40) % [place] % (Auto) (2-11) % Eos % (Auto) (0-4) % Baso % (Auto) (0-2) % Lymph # (Auto) (1.2-4.9) X10*3/uL [place] # (Auto) (0.1-1.2) X10*3/uL Eos # (Auto) (0.0-0.4) X10*3/uL Baso # (Auto) (0.0-0.2) X10*3/uL Abs Immat Gran (auto) (0.00-0.03) X10*3/uL Absolute Neuts (auto) (2.0-8.3) X10*3/uL Absolute Nucleated RBC (0.0-0.012) X10*3/uL Nucleated RBC % (auto) (0.0-0.2) /100WBC Sodium (135-145) mmol/L Potassium (3.3-5.1) mmol/L Chloride (96-108) mmol/L Carbon Dioxide (22-29) mmol/L Anion Gap (12-20) BUN (9-16) mg/dL Creatinine (0.5-1.4) mg/dL Estim Creat Clear Calc Estimated GFR Random Glucose (60-115) mg/dL Calcium (8.4-10.2) mg/dL Troponin I High Sens < 3.5 (<3.5-35.0) ng/L B-Natriuretic Peptide 13 (<100) pg/mL Coronavirus (PCR) (Negative) Influenza Type A (PCR) (Negative) Influenza Type B (PCR) (Negative) RSV RNA Qual (PCR) (Negative) Discharge Plan Discharge Clinical Impression: Bronchitis Patient Disposition: Home, Self-Care Instructions: Acute Bronchitis (ED) Prescriptions: New azithromycin 250 mg tablet See Rx Instructions .ROUTE .COMPLEX Qty: 6 RF: 0 prednisone 20 mg tablet 40 mg PO DAILY Qty: 10 RF: 0 benzonatate [Tessalon Perles] 100 mg capsule 100 mg PO TID Qty: 20 RF: 0 No Action latanoprost 0.005 % drops 1 drp ophthalmic (eye) BID RF: 0 atorvastatin 20 mg tablet 1 tab PO DAILY RF: 0 amitriptyline 25 mg tablet 1 tab PO BEDTIME RF: 0 glipizide 2.5 mg tablet extended release 24hr 2.5 mg PO BID RF: 0 folic acid 1 mg tablet 1 tab PO DAILY RF: 0 ergocalciferol (vitamin D2) [Vitamin D2] 1,250 mcg (50,000 unit) capsule 1,250 mcg PO QMONTH RF: 0 albuterol sulfate 90 mcg/actuation HFA aerosol inhaler 1 puff inhalation BID RF: 0 Flovent HFA 110 mcg/actuation HFA aerosol inhaler 1 puff inhalation BID RF: 0 Januvia 100 mg tablet 1 tab PO DAILY RF: 0 Eliquis 5 mg tablet 1 tab PO BID RF: 0 lidocaine 4 % adhesive patch,medicated 1 patch topical DAILY PRN (Reason: pain) Qty: 10 RF: 0 diazepam [Valium] 5 mg tablet 5 mg PO TID PRN (Reason: muscle spasm) Qty: 10 RF: 0
[2021-08-20 10:54] LABS: MANUAL DIFF FLAG NO
[2021-08-20 11:06] LABS: Basophils Percent Auto 0.3 % (0-2); Eosinophils Percent Auto 0.6 % (0-4); Hemoglobin 17.4 g/dl (14.0-18.0); Imm Gran Abs Auto 0.02 X10*3/uL (0.00-0.03); Imm Gran Pct Auto 0.3 % (0.0-0.4); Lymphocytes Absolute Auto 1.2 X10*3/uL (1.2-4.9); Lymphocytes Percent Auto 17.3 % (20-40); Mean Corpuscular HGB Conc 34.8 g/dl (31.0-36.0); Mean Corpuscular Hemoglobin 33.8 pg (27.0-33.0); Mean Corpuscular Volume 97.1 fL (80-98); Mean Platelet Volume 8.7 fL (9.4-12.4); Monocytes Absolute Auto 0.6 X10*3/uL (0.1-1.2); Monocytes Percent Auto 8.7 % (2-11); Neutrophils Absolute Auto 4.8 X10*3/uL (2.0-8.3); Neutrophils Percent Auto 72.8 % (45-73); Platelet Count 96 X10*3/uL (160-400); Red Blood Count 5.15 X10*6/uL (4.60-5.80); White Blood Count 6.7 X10*3/uL (4.8-10.8)
[2021-08-20 11:19] LABS: Anion Gap 11 (12-20); Blood Urea Nitrogen 13 mg/dL (9-16); Calcium 8.9 mg/dL (8.4-10.2); Carbon Dioxide 23 mmol/L (22-29); Chloride 110 mmol/L (96-108); Creatinine Clr Calc Pharmacy 49.9; Estimated Glomerular Filt Rate 45; Glucose Random 136 mg/dL (60-115); Potassium 4.4 mmol/L (3.3-5.1); Sodium 140 mmol/L (135-145)
[2021-08-20 11:25] LABS: B Type Natriuretic Peptide 13 pg/mL (<100); Troponin-I High Sensitivity < 3.5 ng/L (<3.5-35.0)
[2021-08-20 12:18] LABS: Influenza A PCR NEGATIVE (Negative); Influenza B PCR NEGATIVE (Negative); Resp Syncy Virus RNA Qual PCR NEGATIVE (Negative); SARS COV2 PCR INHOUSE NEGATIVE (Negative)
[2021-08-20] MEDS: predniSONE 20 MG TABLET 40 MG PO (13:05)
== END 2021-08-20 13:08 | disposition home or self-care (01) ==
PROVIDERS: Emergency Provider Emergency Medicine Emergency Medical Services
DX: J40 Bronchitis, not specified as acute or chronic (principal); R06.02 Shortness of breath; R05.9 Cough, unspecified; F12.90 Cannabis use, unspecified, uncomplicated; Z20.822 Contact with and (suspected) exposure to COVID-19; Z87.891 Personal history of nicotine dependence; Z79.899 Other long term (current) drug therapy
CPT/HCPCS: 0241U; 36415; 71045; 80048; 83880; 84484; 85025; 93005; 99284; 99285

== ENCOUNTER 2022-07-24 11:44 | Emergency (ER) | payer MEDICARE, OTHER, SELFPAY ==
--- NOTE | ~2022-07-24 | CT_ITS ---
EXAMINATION: CT ABDOMEN AND PELVIS WITHOUT CONTRAST CLINICAL INFORMATION: LLQ pain ?diverticulitis . COMPARISON: No pertinent prior studies are available for comparison. TECHNIQUE: Multidetector volumetric imaging was performed from the superior aspect of the liver through the pubic symphysis without contrast per request. Sagittal and coronal reformatted images were obtained on the technologist workstation. This CT examination was performed using dose optimization techniques as appropriate, variously including the following: *Automated exposure control *Adjustment of mA and/or kV according to patient size (this includes techniques or standardized protocols for targeted exams where dose is matched to indication/reason for exam; i.e. extremities or head) *Use of iterative reconstruction technique DLP: 659 mGy-cm. FINDINGS: LUNG BASES: The visualized lung bases are unremarkable. LIVER, GALLBLADDER, BILIARY TREE: The non-contrast liver is normal in size, shape, and attenuation. No focal hepatic lesion or biliary ductal dilatation is present. The gallbladder is unremarkable with no evidence of radiopaque gallstones, gallbladder wall thickening, or obvious pericholecystic inflammatory changes. PANCREAS: Unremarkable. SPLEEN: Unremarkable. ADRENAL GLANDS: Unremarkable. KIDNEYS AND URETERS: The kidneys are normal in size, shape, and attenuation. No hydronephrosis, hydroureter, or calculi seen. No perinephric stranding. BLADDER: Unremarkable. GASTROINTESTINAL TRACT: Colon is mostly decompressed. Anastomotic staple line in the sigmoid colon. There is scattered colonic diverticulosis but I do not appreciate any colonic wall thickening or pericolonic inflammatory change to suggest diverticulitis. Normal-appearing appendix in the right lower quadrant. Visualized small bowel unremarkable ABDOMINAL WALL: Postoperative changes seen with a tiny midline ventral hernia noted similar to the prior study LYMPHOVASCULAR STRUCTURES: Extensive vascular calcification in the aorta iliac system. A aorto left iliac bypass graft is seen with a femorofemoral bypass graft noted as well. These cannot be defined further on this noncontrast study. PELVIC VISCERA: Unremarkable. OSSEUS STRUCTURES: Multilevel degenerative changes in the spine CT/CT abdomen pelvis wo IV con IMPRESSION: Chronic appearing and postoperative changes are again noted. I do not appreciate any definitive acute intra-abdominal process. There is diverticulosis but no evidence for acute diverticulitis.
[2022-07-24 12:38] VITALS: BP 138/81; PULSE 93; RESP 18; TEMP 37.2; O2SAT 95; BMI 32.8
[2022-07-24 13:09] LABS: MANUAL DIFF FLAG NO
[2022-07-24 13:10] LABS: Basophils Percent Auto 0.1 % (0-2); Eosinophils Absolute Auto 0.1 X10*3/uL (0.0-0.4); Eosinophils Percent Auto 0.9 % (0-4); Hemoglobin 17.1 g/dl (14.0-18.0); Imm Gran Abs Auto 0.02 X10*3/uL (0.00-0.03); Imm Gran Pct Auto 0.3 % (0.0-0.4); Lymphocytes Absolute Auto 1.4 X10*3/uL (1.2-4.9); Mean Corpuscular HGB Conc 34.9 g/dl (31.0-36.0); Mean Corpuscular Hemoglobin 32.5 pg (27.0-33.0); Mean Corpuscular Volume 93.2 fL (80.0-98.0); Mean Platelet Volume 9.1 fL (9.4-12.4); Monocytes Absolute Auto 0.8 X10*3/uL (0.1-1.2); Neutrophils Absolute Auto 5.4 x10*3/uL (2.0-8.3); Neutrophils Percent Auto 70.7 % (45-73); Platelet Count 107 X10*3/uL (160-400); Red Blood Count 5.26 X10*6/uL (4.60-5.80); Red Cell Distribution Width 12.4 % (11.0-16.0); White Blood Count 7.6 X10*3/uL (4.8-10.8)
[2022-07-24 13:13] LABS: Appearance Urine Clear; Color Urine Yellow; Glucose Urine UA 500 mg/dL (Negative); Leukocyte Esterase Urine Negative (Negative); Nitrite Urine Negative (Negative); Specific Gravity - Urine 1.025 (1.005-1.025); Urine Blood Negative (Negative); Urine Ketones Trace mg/dL (Negative); Urine Protein Trace mg/dL (Neg-Trace)
[2022-07-24 13:27] LABS: Alanine Aminotransferase 31 U/L (0-40); Albumin Level 4.3 g/dL (3.5-5.0); Alkaline Phosphatase 86 U/L (39-117); Anion Gap 14 (12-20); Aspartate Amino Transferase 19 U/L (5-37); Bilirubin Direct 0.3 mg/dL (0.0-0.5); Bilirubin Total 0.7 mg/dL (0.0-1.0); Blood Urea Nitrogen 13 mg/dL (9-16); Carbon Dioxide 24 mmol/L (22-29); Chloride 103 mmol/L (96-108); Creatinine Clr Calc Pharmacy 48.2; Estimated Glomerular Filt Rate 43; Glucose Random 181 mg/dL (60-115); Lipase 16 U/L (8-78); Sodium 137 mmol/L (135-145); Total Protein 7.6 g/dL (6.5-8.0)
[2022-07-24 16:07] VITALS: BP 132/78; PULSE 77; RESP 16; TEMP 36.6; O2SAT 94
--- NOTE | 2022-07-24 16:46 | ED.ABDPAIN ---
HPI - Abdominal Pain General Chief Complaint: Abdominal Pain Stated Complaint: Stomach Pain X 4 Days Time Seen by Provider: 07/24/22 16:46 Source: patient Mode of arrival: ambulatory Limitations: no limitations History of Present Illness HPI narrative: Patient history of diverticulitis status post bowel resection in 2013 comes in for 4 days of left lower abdominal pain with poor appetite and nausea patient had diarrhea 2 days ago no blood in the stool no fever no chills does not feel hungry pain get worse on ambulation and palpation and after eating food Related Data Home Medications Medication Instructions Recorded Confirmed albuterol sulfate 90 mcg/actuation 1 puff inhalation BID 12/01/20 04/05/22 aerosol inhaler amitriptyline 25 mg tablet 1 tab PO BEDTIME 12/01/20 04/05/22 apixaban 5 mg tablet (Eliquis) 1 tab PO BID 12/01/20 04/05/22 atorvastatin 20 mg tablet 1 tab PO DAILY 12/01/20 04/05/22 ergocalciferol (vitamin D2) 1,250 1,250 mcg PO QMONTH 12/01/20 04/05/22 mcg (50,000 unit) capsule (Vitamin D2) fluticasone propionate 110 1 puff inhalation BID 12/01/20 04/05/22 mcg/actuation HFA aerosol inhaler (Flovent HFA) folic acid 1 mg tablet 1 tab PO DAILY 12/01/20 04/05/22 glipizide 2.5 mg tablet, extended 2.5 mg PO BID 12/01/20 04/05/22 release 24 hr sitagliptin 100 mg tablet (Januvia) 1 tab PO DAILY 12/01/20 04/05/22 Previous Rx's Medication Instructions Recorded amoxicillin 875 mg-potassium 1 tab PO BID #20 tabs 07/24/22 clavulanate 125 mg tablet dicyclomine 20 mg tablet 20 mg PO QID PRN abdominal pain 07/24/22 #20 tabs Allergies Allergy/AdvReac Type Severity Reaction Status Date / Time metformin [METFORMIN] AdvReac Intermediate DIARRHEA Verified 04/05/22 08:17 clopidogrel [From PLAVIX] AdvReac Unknown HEADACHES Verified 04/05/22 08:17 Review of Systems Review of Systems Yes all other systems are reviewed and are negative PMFSH Past Medical History Medical History Bakers cyst Diabetes Diverticulitis DVT (deep venous thrombosis) Hernia, abdominal Inguinal hernia Skin cancer of forehead Surgical History H/O aorto-femoral bypass H/O heart bypass surgery Hx of plastic surgery Family History Family History Mother Breast cancer Heart disease Father Lung cancer Social History Social History Household Members: None Housing: Apartment Are you a primary career and technology education teacher to a significant other at home: No Do you presently have visiting nurse or other home services: No Alcohol intake: former Patient Tobacco Use Status: Former Tobacco user Quit Date: 08/22/2021 Cigarette Packs Per Day: 1 Years Smoked: 50 Substance Use Type: Marijuana Advance Directives: No Advance Directives Information Provided: No service: No Current occupational status: retired Physical Exam ED Vital Signs: Vital Signs - 24 hr 07/24/22 12:38 07/24/22 16:07 Temperature 98.9 F 97.8 F Pulse Rate 93 77 Respiratory Rate 18 16 Blood Pressure 138/81 132/78 Pulse Oximetry 95 94 Oxygen Delivery Method Room Air Room Air BMI result Body Mass Index 32.8 Appearance: Alert. Oriented X3. No acute distress. Eyes: PERRLA, No Nystagmus ENT: Pharynx normal. Oral Mucosa moist Neck: Normal inspection. Neck supple. CVS: Normal heart rate and rhythm. Pulses normal. Respiratory: No respiratory distress. Equal air entry bilateral, no wheezing/rales/rhonchi Abdomen: Soft , deep tenderness left lower quadrant no rebound tenderness or guarding . Bowel sounds are present, no mass palpable, no CVA tenderness Skin: Skin warm and dry. Normal skin color. Normal skin turgor. Extremities: No lower extremity edema. No calf tenderness Neuro: Oriented X 3. No motor deficit. No sensory deficit. MDM - Abdominal Pain MDM Narrative Medical decision making narrative: With CT scan negative for diverticulitis showed diverticulosis patient still complaining of pain will discharge patient home on Augmentin and dicyclomine Differential Diagnosis Differential diagnosis: Likely abdominal pain, diverticulitis and gastroenteritis Medical Records Attestation: I reviewed the patient's medical records. Lab Data Attestation: I reviewed the patient's lab results. Result diagrams: 07/24/22 13:05 07/24/22 13:05 Labs: Lab Results 07/24/22 07/24/22 07/24/22 Range/Units 13:05 13:05 13:05 WBC 7.6 (4.8-10.8) X10*3/uL RBC 5.26 (4.60-5.80) X10*6/uL Hgb 17.1 (14.0-18.0) g/dl Hct 49.0 (42.0-52.0) % MCV 93.2 (80.0-98.0) fL MCH 32.5 (27.0-33.0) pg MCHC 34.9 (31.0-36.0) g/dl RDW 12.4 (11.0-16.0) % Plt Count 107 L (160-400) X10*3/uL MPV 9.1 L (9.4-12.4) fL Immature Gran % (Auto) 0.3 (0.0-0.4) % Neut % (Auto) 70.7 (45-73) % Lymph % (Auto) 18.0 L (20-40) % [place] % (Auto) 10.0 (2-11) % Eos % (Auto) 0.9 (0-4) % Baso % (Auto) 0.1 (0-2) % Lymph # (Auto) 1.4 (1.2-4.9) X10*3/uL [place] # (Auto) 0.8 (0.1-1.2) X10*3/uL Eos # (Auto) 0.1 (0.0-0.4) X10*3/uL Baso # (Auto) 0.0 (0.0-0.2) X10*3/uL Abs Immat Gran (auto) 0.02 (0.00-0.03) X10*3/uL Absolute Neuts (auto) 5.4 (2.0-8.3) x10*3/uL Absolute Nucleated RBC 0.000 (0.0-0.012) X10*3/uL Nucleated RBC % (auto) 0.0 (0.0-0.2) /100WBC Sodium 137 (135-145) mmol/L Potassium 4.0 (3.3-5.1) mmol/L Chloride 103 (96-108) mmol/L Carbon Dioxide 24 (22-29) mmol/L Anion Gap 14 (12-20) BUN 13 (9-16) mg/dL Creatinine 1.61 H (0.5-1.4) mg/dL Estim Creat Clear Calc 48.2 Estimated GFR 43 Random Glucose 181 H (60-115) mg/dL Calcium 9.0 (8.4-10.2) mg/dL Total Bilirubin 0.7 (0.0-1.0) mg/dL Direct Bilirubin 0.3 (0.0-0.5) mg/dL AST 19 (5-37) U/L ALT 31 (0-40) U/L Alkaline Phosphatase 86 D (39-117) U/L Total Protein 7.6 (6.5-8.0) g/dL Albumin 4.3 (3.5-5.0) g/dL Lipase 16 (8-78) U/L Urine Color Yellow Urine Appearance Clear Urine pH 5.0 (5.0-9.0) Ur Specific [place] 1.025 (1.005-1.025) Urine Protein Trace (Neg-Trace) mg/dL Urine Glucose (UA) 500 H (Negative) mg/dL Urine Ketones Trace (Negative) mg/dL Urine Blood Negative (Negative) Urine Nitrite Negative (Negative) Ur Leukocyte Esterase Negative (Negative) Discharge Plan Discharge Clinical Impression: Diverticulosis Patient Disposition: Home, Self-Care Instructions: Diverticulosis (ED) Additional Instructions: Soft diet advanced as tolerated Dicyclomine for abdominal cramps and Augmentin for possible infection although CT scan is negative for any infection Follow-up with antenna specialist/PCP Prescriptions: New dicyclomine 20 mg tablet 20 mg PO QID PRN (Reason: abdominal pain) Qty: 20 0RF amoxicillin-pot clavulanate 875-125 mg tablet 1 tab PO BID Qty: 20 0RF No Action atorvastatin 20 mg tablet 1 tab PO DAILY amitriptyline 25 mg tablet 1 tab PO BEDTIME glipizide 2.5 mg tablet extended release 24hr 2.5 mg PO BID folic acid 1 mg tablet 1 tab PO DAILY ergocalciferol (vitamin D2) [Vitamin D2] 1,250 mcg (50,000 unit) capsule 1,250 mcg PO QMONTH albuterol sulfate 90 mcg/actuation HFA aerosol inhaler 1 puff inhalation BID Flovent HFA 110 mcg/actuation HFA aerosol inhaler 1 puff inhalation BID Januvia 100 mg tablet 1 tab PO DAILY Eliquis 5 mg tablet 1 tab PO BID Interventions: ED Discharge Assessment Last Done: 07/24/22 19:13 Discharge Date/Time: 07/24/22 19:13
[2022-07-24] MEDS: Dicyclomine HCl 10 MG CAPSULE 20 MG PO (18:44)
[2022-07-24] MEDS: Amoxicillin/Potassium Clav 875 MG TABLET PO (18:44)
== END 2022-07-24 19:13 | disposition home or self-care (01) ==
PROVIDERS: Emergency Provider Internal Medicine
DX: K57.90 Diverticulosis of intestine, part unspecified, without perforation or abscess without bleeding (principal); R10.32 Left lower quadrant pain; E11.9 Type 2 diabetes mellitus without complications; F12.90 Cannabis use, unspecified, uncomplicated; Z86.718 Personal history of other venous thrombosis and embolism; Z87.891 Personal history of nicotine dependence; Z79.01 Long term (current) use of anticoagulants; Z79.02 Long term (current) use of antithrombotics/antiplatelets; Z79.899 Other long term (current) drug therapy; Z79.84 Long term (current) use of oral hypoglycemic drugs
CPT/HCPCS: 36415; 74176; 80053; 81003; 82248; 83690; 85025; 99284

== ENCOUNTER 2023-09-13 11:04 | Emergency (ER) | payer MEDICARE, OTHER, SELFPAY ==
--- NOTE | ~2023-09-13 | XR_ITS ---
EXAMINATION: CHEST AND CERVICAL SPINE CLINICAL INFORMATION: Left-sided chest pain and neck pain COMPARISON: Chest radiograph 08/20/2021, cervical spine 09/17/2007 TECHNIQUE: 2 views chest, 4 views cervical spine FINDINGS: Chest: No significant abnormalities seen involving the heart lungs or mediastinum. Mild scoliosis is present with degenerative changes in the spine. C-spine: Degenerative changes are seen predominantly at C6-C7 where there is disc space narrowing, some endplate sclerosis and osteophyte formation. Appearances are similar to the study from 09/17/2007. At other levels, there is some anterior osteophytes present which have increased in amount since 2006. Disc spaces and vertebral body heights are well-maintained. No prevertebral soft tissue swelling or subluxations. XR/XR cervical spine 3V IMPRESSION: 1. No acute intrathoracic disease. 2. Chronic degenerative changes in the cervical spine, most marked at C6-C7.
--- NOTE | ~2023-09-13 | XR_ITS ---
EXAMINATION: CHEST AND CERVICAL SPINE CLINICAL INFORMATION: Left-sided chest pain and neck pain COMPARISON: Chest radiograph 08/20/2021, cervical spine 09/17/2007 TECHNIQUE: 2 views chest, 4 views cervical spine FINDINGS: Chest: No significant abnormalities seen involving the heart lungs or mediastinum. Mild scoliosis is present with degenerative changes in the spine. C-spine: Degenerative changes are seen predominantly at C6-C7 where there is disc space narrowing, some endplate sclerosis and osteophyte formation. Appearances are similar to the study from 09/17/2007. At other levels, there is some anterior osteophytes present which have increased in amount since 2006. Disc spaces and vertebral body heights are well-maintained. No prevertebral soft tissue swelling or subluxations. XR/XR chest 2V IMPRESSION: 1. No acute intrathoracic disease. 2. Chronic degenerative changes in the cervical spine, most marked at C6-C7.
[2023-09-13 11:08] VITALS: BP 145/86; PULSE 101; RESP 18; TEMP 37; O2SAT 96; BMI 33.0
--- NOTE | 2023-09-13 11:10 | ED_ITS ---
HPI - Neck Pain/Injury General Chief Complaint: Neck Pain/Injury Stated Complaint: l sided neck down arm pain and SOB Time Seen by Provider: 09/13/23 11:15 Source: patient Mode of arrival: ambulatory Limitations: no limitations History of Present Illness HPI Narrative: Patient is a 68 year old assigned male at with a history of DVT presenting to the emergency department today with left sided neck and shoulder pain that radiates down into the left wrist. Patient states that over the last 7 days he has had worsening left neck pain that radiates into the shoulder. Patient denies any dizziness, lightheadedness, abdominal pain, nausea, vomiting, fever, chills, blurry vision, double vision, loss of vision, chest pain, difficulty breathing, shortness of breath, back pain, night sweats, pain with urination, increased urinary frequency, increased urinary urgency, blood in his urine or stool, syncope or a near syncopal episode, recent trauma or falls, bowel incontinence, bladder incontinence, bowel retention, bladder retention, or any other complaints at this time. Onset (ago): week(s) (1) Severity: mild Severity scale (1-10): 2 Relieving factors: none Exacerbating factors: none Associated symptoms: none Treatments prior to arrival: none Related Data Home Medications Medication Instructions Recorded Confirmed albuterol sulfate 90 mcg/actuation 1 puff inhalation BID 12/01/20 04/10/23 aerosol inhaler amitriptyline 25 mg tablet 1 tab PO BEDTIME 12/01/20 04/10/23 apixaban 5 mg tablet (Eliquis) 1 tab PO BID 12/01/20 04/10/23 atorvastatin 20 mg tablet 1 tab PO DAILY 12/01/20 04/10/23 ergocalciferol (vitamin D2) 1,250 1,250 mcg PO QMONTH 12/01/20 04/10/23 mcg (50,000 unit) capsule (Vitamin D2) fluticasone propionate 110 1 puff inhalation BID 12/01/20 04/10/23 mcg/actuation HFA aerosol inhaler (Flovent HFA) folic acid 1 mg tablet 1 tab PO DAILY 12/01/20 04/10/23 glipizide 2.5 mg tablet, extended 2.5 mg PO BID 12/01/20 04/10/23 release 24 hr sitagliptin phosphate 100 mg 1 tab PO DAILY 12/01/20 04/10/23 tablet (Januvia) Previous Rx's Medication Instructions Recorded amoxicillin 875 mg-potassium 1 tab PO BID #20 tabs 07/24/22 clavulanate 125 mg tablet dicyclomine 20 mg tablet 20 mg PO QID PRN abdominal pain 07/24/22 #20 tabs cyclobenzaprine 5 mg tablet 5 mg PO TID PRN muscle spasm 7 09/13/23 days #21 tabs prednisone 20 mg tablet 20 mg PO DAILY 7 days #7 tabs 09/13/23 Allergies Allergy/AdvReac Type Severity Reaction Status Date / Time metformin [METFORMIN] AdvReac Intermediate DIARRHEA Verified 04/05/22 08:17 clopidogrel [From PLAVIX] AdvReac Unknown HEADACHES Verified 04/05/22 08:17 Review of Systems 2 Constitutional: Constitutional: Reports no additional constitutional complaints, Denies chills, Denies fever(s) and Denies night sweats Eyes: Eyes: Reports no additional eye complaints, Denies blurry vision, Denies change in vision, Denies diplopia, Denies eye discharge, Denies loss of vision and Denies eye pain ENT: Denies dizziness Comments: left sided neck pain Cardiovascular: Cardiovascular: Reports no additional cardiovascular complaints, Denies chest pain, Denies lightheadedness, Denies Loss of Consciousness and Denies dyspnea Respiratory: Respiratory: Reports no additional respiratory complaints and Denies dyspnea Gastrointestinal: Gastrointestinal: Reports no additional gastrointestinal complaints, Denies abdominal pain, Denies melena, Denies hematochezia, Denies change in bowel habits and Denies change in stool character Genitourinary: Genitourinary: Reports no additional male genitourinary complaints, Denies hematuria, Denies oliguria, Denies difficulty urinating, Denies dysuria, Denies urinary frequency, Denies urinary hesitancy, Denies urinary incontinence and Denies urinary urgency Musculoskeletal: Musculoskeletal: Reports no additional musculoskeletal complaints, Denies numbness and Denies tingling Neurologic: Denies dizziness, Denies loss of vision, Denies numbness and Denies tingling Psychiatric: Psychiatric: Reports no additional psychiatric complaints Endocrine: Endocrine: Reports no additional endocrine complaints Hematologic/Lymphatic: Hematologic/Lymphatic: Reports no additional hematologic/lymphatic complaints Allergic/Immunologic: Allergic/Immunologic: Reports no additional allergic/immunologic complaints PMFSH Past Medical History Attestation statement: The following information was validated with the patient. Source: old records reviewed and nursing notes reviewed Medical History Bakers cyst Hernia, abdominal Inguinal hernia Skin cancer of forehead DVT (deep venous thrombosis) Diabetes Diverticulitis Surgical History H/O aorto-femoral bypass Hx of plastic surgery H/O heart bypass surgery Family History Family History Mother Breast cancer Heart disease Father Lung cancer Social History Social History Household Members: None Housing: Apartment Are you a primary acute care surgeon to a significant other at home: No Do you presently have visiting nurse or other home services: No Alcohol intake: former Patient Tobacco Use Status: Former Tobacco user Quit Date: 08/22/2021 Cigarette Packs Per Day: 1 Years Smoked: 50 Substance Use Type: Marijuana Advance Directives: No Advance Directives Information Provided: No service: No Current occupational status: retired Physical Exam 2 Vital Signs: Vital Signs: Last Vital Signs Temp 98.6 F 09/13/23 11:08 Pulse 89 09/13/23 12:35 Resp 16 09/13/23 12:35 BP 135/80 09/13/23 12:35 Pulse Ox 96 09/13/23 12:35 O2 Del Method Room Air 09/13/23 12:35 BMI result Body Mass Index 33.0 Const: General: cooperative, no acute distress, alert and awake Nutritional Appearance: well nourished Orientation/consciousness: patient oriented x3 Limitations: no limitations HEENT: Head: Yes normal to inspection and Yes atraumatic Ears: hearing grossly normal bilaterally and external ears normal General nose exam: Normal external nose present, no nasal discharge noted and no epistaxis Face and sinus: Yes normal facial exam, No abrasion and No laceration Mouth: Normal oral and palatal mucosa present, no drooling and no muffled voice Eyes: General: appearance normal, both eyes and all related structures P eriorbital: periorbital findings normal Eyelids: Yes eyelids normal C onjunctivae: conjunctivae normal Pupils: Equal, round and reactive pupils present EOM: EOMs intact bilaterally Neck: Neck: Yes normal visual inspection, Yes full ROM and Yes no lymphadenopathy Chest: Chest palpation & inspection: normal inspection of the chest Resp: Effort & Inspection: normal respiratory effort and able to speak in complete sentences Auscultation: clear to auscultation bilaterally GI: Inspection: Yes normal to inspection Neuro: General: patient oriented x3 and moves all extremities Cranial nerves: Yes Equal, round and reactive pupils present Cognition (Neuro): n ormal cognition Motor exam (neuro): 5/5 motor strength present throughout Sensory Exam: Normal double simultaneous stimulation for sensation C oordination: [id number] test normal Extrem: General: Yes normal to inspection, Yes full ROM and Yes capillary refill normal Psych: Appearance: grossly normal Mental Status: mental status grossly normal Affect: normal affect Attitude: cooperative Thought process: N ormal thought process present Thought content: Normal thought content present Insight: Good insight present (Psych) Course Course Course Narrative: Patient complains of left-sided neck pain without injury that began 7 days ago in radiates down from left side of neck to left arm This is rapid medical exam done in triage pending full evaluation and that a ER by provider C-spine x-ray ordered Medical Decision Making Medical Decision Making MDM Narrative: Patient is a 68 year old assigned male at with a history of DVT presenting to the emergency department today with left sided neck pain. Patient's physical exam was unremarkable. Patient's blood work was unremarkable. Patient's EKG was unremarkable. Patient's chest and cervical spine x-rays showed no acute process. I explained my physical exam findings as well as all test results to the patient. I answered all questions asked by the patient. I stressed the importance of the patient taking his medication as prescribed. I stressed the importance of the patient following up with his primary care provider. I stressed the importance of the patient returning to the emergency department immediately if his symptoms were to worsen or if he were to develop any dizziness, shortness of breath, difficulty breathing, chest pain, blurry vision, loss of vision, nausea, vomiting, abdominal pain, fever, chills, back pain, or any other complaints. Patient verbalized agreement and understanding with this treatment plan and discharge. Differential Diagnosis Differential Diagnoses: The differential diagnosis associated with the presentation includes Cervical radiculopathy NSTEMI STEMI Admission/Observation Consideration of admission/observation: Escalation of care including admission/observation considered Patient would have been admitted to the hospital had his work up had any findings where hospital admission was appropriate and his clinical presentation warranted hospital admission. Lab Data MDM Lab Attestation statement: I reviewed the patient's lab results. My interpretation of these studies and their corresponding values is that they are grossly normal. 09/13/23 11:40 09/13/23 11:40 Labs: Lab Results 09/13/23 Range/Units 11:40 WBC 7.4 (4.8-10.8) X10*3/uL RBC 5.07 (4.60-5.80) X10*6/uL Hgb 16.6 (14.0-18.0) g/dl Hct 47.3 (42.0-52.0) % MCV 93.3 (80.0-98.0) fL MCH 32.7 (27.0-33.0) pg MCHC 35.1 (31.0-36.0) g/dl RDW 12.7 (11.0-16.0) % Plt Count 94 L (160-400) X10*3/uL MPV 9.0 L (9.4-12.4) fL Immature Gran % (Auto) 0.3 (0.0-0.4) % Neut % (Auto) 69.7 (45-73) % Lymph % (Auto) 20.1 (20-40) % [place] % (Auto) 8.4 (2-11) % Eos % (Auto) 1.1 (0-4) % Baso % (Auto) 0.4 (0-2) % Lymph # (Auto) 1.5 (1.2-4.9) X10*3/uL [place] # (Auto) 0.6 (0.1-1.2) X10*3/uL Eos # (Auto) 0.1 (0.0-0.4) X10*3/uL Baso # (Auto) 0.0 (0.0-0.2) X10*3/uL Abs Immat Gran (auto) 0.02 (0.00-0.03) X10*3/uL Absolute Neuts (auto) 5.2 (2.0-8.3) x10*3/uL Absolute Nucleated RBC 0.000 (0.0-0.012) X10*3/uL Nucleated RBC % (auto) 0.0 (0.0-0.2) /100WBC Sodium 139 (135-145) mmol/L Potassium 4.5 (3.3-5.1) mmol/L Chloride 111 H (96-108) mmol/L Carbon Dioxide 24 (22-29) mmol/L Anion Gap 9 L (12-20) BUN 12 (9-16) mg/dL Creatinine 1.38 (0.5-1.4) mg/dL Estim Creat Clear Calc 55.6 Estimated GFR 51 Random Glucose 140 H (60-115) mg/dL Calcium 9.5 (8.4-10.2) mg/dL Magnesium 2.0 (1.6-2.6) mg/dL Total Bilirubin 0.5 (0.0-1.0) mg/dL AST 18 (5-37) U/L ALT 25 (0-40) U/L Alkaline Phosphatase 77 (39-117) U/L Troponin I High Sens < 2.7 (<3.5-35.0) ng/L B-Natriuretic Peptide < 10 (<100) pg/mL Total Protein 7.5 (6.5-8.0) g/dL Albumin 4.2 (3.5-5.0) g/dL Independent Interpretation I performed an independent interpretation of an: EKG and Plain X-Ray Interpretation: My interpretation is in agreement with the radiologist's impression of these imaging studies. - EXAMINATION: CHEST AND CERVICAL SPINE CLINICAL INFORMATION: Left-sided chest pain and neck pain COMPARISON: Chest radiograph 08/20/2021, cervical spine 09/17/2007 TECHNIQUE: 2 views chest, 4 views cervical spine FINDINGS: Chest: No significant abnormalities seen involving the heart lungs or mediastinum. Mild scoliosis is present with degenerative changes in the spine. C-spine: Degenerative changes are seen predominantly at C6-C7 where there is disc space narrowing, some endplate sclerosis and osteophyte formation. Appearances are similar to the study from 09/17/2007. At other levels, there is some anterior osteophytes present which have increased in amount since 2006. Disc spaces and vertebral body heights are well-maintained. No prevertebral soft tissue swelling or subluxations. XR/XR chest 2V IMPRESSION: 1. No acute intrathoracic disease. 2. Chronic degenerative changes in the cervical spine, most marked at C6-C7. Dictated By: Kyle Henson MD Signed By: Electronically signed by Kyle Henson MD 09/13/23 1134 - Vent. Rate: 091 BPM Atrial Rate: 091 BPM P-R Int: 168 ms QRS Dur: 148 ms QT Int: 388 ms P-R-T Axes: 034 065 020 degrees QTc Int: 477 ms Normal sinus rhythm Right bundle branch block Abnormal ECG When compared with ECG of 20-AUG-2021 11:32, No significant change was found Electronically Signed By:JUAN GOTTLIEB MD Dictated By: Koko Gottlieb MD Signed By: Electronically signed by Koko Gottlieb MD 09/13/23 4873 Radiology Impression Discussion of test interpretation with radiology: I have reviewed the radiologist's reading. Prescription Management I considered prescription management with: Pain Medication (patient prescribed pain medication.) Chronic Conditions Patient?s care impacted by: Diabetes Discharge Plan Discharge Clinical Impression: Cervical radiculopathy Patient Disposition: Home, Self-Care Instructions: Cervical Radiculopathy (ED) Additional Instructions: Follow up with your primary care provider and an orthopedic provider. Return to the emergency department immediately if your symptoms worsen or if you develop any dizziness, shortness of breath, difficulty breathing, chest pain, blurry vision, loss of vision, nausea, vomiting, abdominal pain, fever, chills, back pain, or any other complaints. Prescriptions: New cyclobenzaprine 5 mg tablet 5 mg PO TID PRN (Reason: muscle spasm) 7 Days Qty: 21 0RF prednisone 20 mg tablet 20 mg PO DAILY 7 Days Qty: 7 0RF No Action atorvastatin 20 mg tablet 1 tab PO DAILY amitriptyline 25 mg tablet 1 tab PO BEDTIME glipizide 2.5 mg tablet extended release 24hr 2.5 mg PO BID folic acid 1 mg tablet 1 tab PO DAILY ergocalciferol (vitamin D2) [Vitamin D2] 1,250 mcg (50,000 unit) capsule 1,250 mcg PO QMONTH albuterol sulfate 90 mcg/actuation HFA aerosol inhaler 1 puff inhalation BID fluticasone propionate [Flovent HFA] 110 mcg/actuation HFA aerosol inhaler 1 puff inhalation BID Januvia 100 mg tablet 1 tab PO DAILY Eliquis 5 mg tablet 1 tab PO BID dicyclomine 20 mg tablet 20 mg PO QID PRN (Reason: abdominal pain) Qty: 20 0RF amoxicillin-pot clavulanate 875-125 mg tablet 1 tab PO BID Qty: 20 0RF [place]: [facility] [place]Provider Group] (Call to establish and follow up with an orthopedic provider.) Jennifer Dowling MD [Primary Care Provider] - Interventions: ED Discharge Assessment Last Done: 09/13/23 12:36 Discharge Date/Time: 09/13/23 12:37 Print Language: Uzbek
--- NOTE | 2023-09-13 11:16 | ECG_ITS ---
Test Reason : NECK PAIN DOWN LT ARM Blood Pressure : / mmHG Vent. Rate : 091 BPM Atrial Rate : 091 BPM P-R Int : 168 ms QRS Dur : 148 ms QT Int : 388 ms P-R-T Axes : 034 065 020 degrees QTc Int : 477 ms Normal sinus rhythm Right bundle branch block Abnormal ECG When compared with ECG of 20-AUG-2021 11:32, No significant change was found Referred By: Daria Gresham Electronically Signed By:JUAN GOTTLIEB MD
[2023-09-13 11:46] LABS: MANUAL DIFF FLAG NO
[2023-09-13 11:50] LABS: Basophils Percent Auto 0.4 % (0-2); Eosinophils Absolute Auto 0.1 X10*3/uL (0.0-0.4); Eosinophils Percent Auto 1.1 % (0-4); Hematocrit 47.3 % (42.0-52.0); Hemoglobin 16.6 g/dl (14.0-18.0); Imm Gran Abs Auto 0.02 X10*3/uL (0.00-0.03); Imm Gran Pct Auto 0.3 % (0.0-0.4); Lymphocytes Absolute Auto 1.5 X10*3/uL (1.2-4.9); Lymphocytes Percent Auto 20.1 % (20-40); Mean Corpuscular HGB Conc 35.1 g/dl (31.0-36.0); Mean Corpuscular Hemoglobin 32.7 pg (27.0-33.0); Mean Corpuscular Volume 93.3 fL (80.0-98.0); Monocytes Absolute Auto 0.6 X10*3/uL (0.1-1.2); Monocytes Percent Auto 8.4 % (2-11); Neutrophils Absolute Auto 5.2 x10*3/uL (2.0-8.3); Neutrophils Percent Auto 69.7 % (45-73); Platelet Count 94 X10*3/uL (160-400); Red Blood Count 5.07 X10*6/uL (4.60-5.80); Red Cell Distribution Width 12.7 % (11.0-16.0); White Blood Count 7.4 X10*3/uL (4.8-10.8)
[2023-09-13 12:03] LABS: Alanine Aminotransferase 25 U/L (0-40); Albumin Level 4.2 g/dL (3.5-5.0); Alkaline Phosphatase 77 U/L (39-117); Anion Gap 9 (12-20); Aspartate Amino Transferase 18 U/L (5-37); Bilirubin Total 0.5 mg/dL (0.0-1.0); Blood Urea Nitrogen 12 mg/dL (9-16); Calcium 9.5 mg/dL (8.4-10.2); Carbon Dioxide 24 mmol/L (22-29); Chloride 111 mmol/L (96-108); Creatinine Clr Calc Pharmacy 55.6; Estimated Glomerular Filt Rate 51; Glucose Random 140 mg/dL (60-115); Potassium 4.5 mmol/L (3.3-5.1); Sodium 139 mmol/L (135-145); Total Protein 7.5 g/dL (6.5-8.0)
[2023-09-13 12:06] LABS: B Type Natriuretic Peptide < 10 pg/mL (<100)
[2023-09-13 12:11] LABS: Troponin-I High Sensitivity < 2.7 ng/L (<3.5-35.0)
[2023-09-13 12:35] VITALS: BP 135/80; PULSE 89; RESP 16; O2SAT 96
== END 2023-09-13 12:37 | disposition home or self-care (01) ==
PROVIDERS: Physician Assistant Medical; Emergency Provider Emergency Medicine; PCP Family Medicine
DX: M54.12 Radiculopathy, cervical region (principal); M54.2 Cervicalgia; R94.31 Abnormal electrocardiogram [ECG] [EKG]; R07.89 Other chest pain; R06.02 Shortness of breath; Z79.899 Other long term (current) drug therapy
CPT/HCPCS: 36415; 71046; 72040; 80053; 83735; 83880; 84484; 85025; 93005; 99283; 99284

== ENCOUNTER 2025-06-06 05:15 | Emergency (ER) | payer MEDICARE, OTHER, SELFPAY ==
--- NOTE | ~2025-06-06 | CT_ITS ---
CLINICAL HISTORY: LLQ pain, sigmoidectomy diverticulitis hx CT abdomen and pelvis without contrast Comparison: 07/24/2022 Findings: The lung bases are clear except for single bandlike left basilar atelectasis/scarring Unremarkable gallbladder and solid organs. No urolithiasis. Rectosigmoid anastomosis. Colonic diverticulosis without diverticulitis. No significant change in appearance ofl femorofemoral and aorto-left femoral stents Postsurgical midline ventral abdominal wall changes with a few small uncomplicated paramidline small ventral abdominal wall hernias. No appendicitis. No acute fracture. IMPRESSION: Colonic diverticulosis without diverticulitis. This document has been electronically signed by: Charline Bernard MD on 06/06/2025 08:53:41
[2025-06-06 05:19] VITALS: BP 123/77; PULSE 87; RESP 18; TEMP 36.6; O2SAT 95; BMI 30.2
[2025-06-06 05:38] LABS: MANUAL DIFF FLAG NO
--- NOTE | 2025-06-06 05:38 | ED.ABDPAIN ---
HPI - Abdominal Pain General Chief Complaint: Abdominal Pain Stated Complaint: Stomach Pain Time Seen by Provider: 06/06/25 05:37 History of Present Illness ED Provider: Ha Smiley MD HPI narrative: Left lower quadrant abdominal pain for weeks. History of DVT on apixaban Patient reports 12 in sigmoidectomy remotely for chronic recurrent diverticulitis he also had a ventral hernia repair remotely prior to that. He has had about 10 days of constant left lower quadrant pain no radiation to the flank or scrotum. Denies symptoms afebrile. Related Data Home Medications ?Medication ?Instructions ?Recorded ?Confirmed albuterol sulfate 90 mcg/actuation 1 puff inhalation BID 12/01/20 04/10/25 aerosol inhaler amitriptyline 25 mg tablet 1 tab PO BEDTIME 12/01/20 04/10/25 apixaban 5 mg tablet (Eliquis) 1 tab PO BID 12/01/20 04/10/25 atorvastatin 20 mg tablet 1 tab PO DAILY 12/01/20 04/10/25 ergocalciferol (vitamin D2) 1,250 1,250 mcg PO QMONTH 12/01/20 04/10/25 mcg (50,000 unit) capsule (Vitamin D2) fluticasone propionate 110 1 puff inhalation BID 12/01/20 04/10/25 mcg/actuation HFA aerosol inhaler (Flovent HFA) folic acid 1 mg tablet 1 tab PO DAILY 12/01/20 04/10/25 sitagliptin phosphate 100 mg 1 tab PO DAILY 12/01/20 04/10/25 tablet (Januvia) dulaglutide 0.75 mg/0.5 mL 4.5 mg subcut DAILY 04/11/24 04/10/25 subcutaneous pen injector (Trulicity) Previous Rx's ?Medication ?Instructions ?Recorded dicyclomine 20 mg tablet 20 mg PO QID PRN abdominal pain 07/24/22 #20 tabs cyclobenzaprine 5 mg tablet 5 mg PO TID PRN muscle spasm 7 09/13/23 days #21 tabs prednisone 20 mg tablet 20 mg PO DAILY 7 days #7 tabs 09/13/23 dicyclomine 20 mg tablet 20 mg PO BID PRN abdominal pain 06/06/25 #14 tabs Allergies Allergy/AdvReac Type Severity Reaction Status Date / Time metformin (METFORMIN) AdvReac Intermediate DIARRHEA Verified 06/06/25 05:21 clopidogrel (From PLAVIX) AdvReac Unknown HEADACHES Verified 06/06/25 05:21 [facility] Past Medical History Medical History Bakers cyst Hernia, abdominal Inguinal hernia Skin cancer of forehead DVT (deep venous thrombosis) Diabetes Diverticulitis Surgical History H/O aorto-femoral bypass Hx of plastic surgery H/O heart bypass surgery Family History Family History Mother Breast cancer Heart disease Father Lung cancer Social History Social History Household Members: None Housing: Apartment Are you a primary intensive care ambulance paramedic to a significant other at home: No Do you presently have visiting nurse or other home services: No Alcohol intake: former Patient Tobacco Use Status: Former Tobacco user Cigarette Packs Per Day: 1 Years Smoked: 50 Smoked in Last 30 Days: No Use of substances other than those prescribed or required for medical reasons: Yes Substance Use Type: Marijuana Substance Use Frequency: Occasionally Last Used Substance: Days (ago) Any prior treatment program specific to substance use: No Advance Directives: No Advance Directives Information Provided: Yes service: No Current occupational status: retired Physical Exam ED Vital Signs: Vital Signs - 24 hr 06/06/25 05:19 06/06/25 06:28 06/06/25 07:25 Temperature 97.9 F 98.2 F Pulse Rate 87 77 Respiratory Rate 18 14 18 Blood Pressure 123/77 115/72 Pulse Oximetry 95 94 Oxygen Delivery Method Room Air Room Air 06/06/25 08:05 Temperature 97.8 F Pulse Rate 82 Respiratory Rate 16 Blood Pressure 124/74 Pulse Oximetry 98 Oxygen Delivery Method Room Air BMI result Body Mass Index 30.2 Medical Decision Making Medical Decision Making MDM Narrative: Medical Decision Making: Chronic recurrent abdominal pain with pain for about a week now in the left lower quadrant constant he is not particularly tender unless I palpate very deeply and left lower quadrant. He has a reducible ventral hernia. No fever. No urinary symptoms including no testicular pain or swelling. Denies any history of renal colic Preliminary Favored Differential Diagnosis: Diverticulitis, functional abdominal pain, constipation, UTI among additional considered etiologies Testing Interpreted Independently: Not Applicable Radiology or Lab testing Results Reviewed: Not Applicable Consults: Not Applicable Independent Historians/External Chart Reviews: Not Applicable Social Determinants of Health Impacting MDM/Planning: Not Applicable Differential Diagnosis Differential Diagnoses: The differential diagnosis associated with the presentation includes Admission/Observation Consideration of admission/observation: Escalation of care including admission/observation considered labs at baseline repeat lipase down and no edema on pancreas CT scan and all pain LLQ doubt pancreatitis Lab Data [facility] Lab Attestation statement: I reviewed the patient's lab results. Cr at baseline lipase labs trending down 06/06/25 05:34 06/06/25 05:34 Labs: Lab Results 06/06/25 06/06/25 06/06/25 Range/Units 05:34 05:50 09:24 WBC 6.9 (4.8-10.8) X10*3/uL RBC 5.00 (4.60-5.80) X10*6/uL Hgb 16.7 (14.0-18.0) g/dl Hct 47.3 (42.0-52.0) % MCV 94.6 (80.0-98.0) fL MCH 33.4 H (27.0-33.0) pg MCHC 35.3 (31.0-36.0) g/dl RDW 13.1 (11.0-16.0) % Plt Count 103 L (160-400) X10*3/uL MPV 8.7 L (9.4-12.4) fL Immature Gran % (Auto) 0.3 (0.0-0.4) % Neut % (Auto) 65.1 (45-73) % Lymph % (Auto) 23.9 (20-40) % Bertie % (Auto) 8.9 (2-11) % Eos % (Auto) 1.5 (0-4) % Baso % (Auto) 0.3 (0-2) % Lymph # (Auto) 1.6 (1.2-4.9) X10*3/uL Bertie # (Auto) 0.6 (0.1-1.2) X10*3/uL Eos # (Auto) 0.1 (0.0-0.4) X10*3/uL Baso # (Auto) 0.0 (0.0-0.2) X10*3/uL Abs Immat Gran (auto) 0.02 (0.00-0.03) X10*3/uL Absolute Neuts (auto) 4.5 (2.0-8.3) x10*3/uL Absolute Nucleated RBC 0.000 (0.0-0.012) X10*3/uL Nucleated RBC % (auto) 0.0 (0.0-0.2) /100WBC Sodium 139 (135-145) mmol/L Potassium 4.2 (3.3-5.1) mmol/L Chloride 107 (96-108) mmol/L Carbon Dioxide 24 (22-29) mmol/L Anion Gap 12 (12-20) BUN 16 (9-16) mg/dL Creatinine 1.53 H (0.5-1.4) mg/dL Estim Creat Clear Calc 46.7 Estimated GFR 45 Random Glucose 154 H (60-115) mg/dL Calcium 9.3 (8.4-10.2) mg/dL Total Bilirubin 0.6 (0.0-1.0) mg/dL AST 26 (5-37) U/L ALT 34 (0-40) U/L Alkaline Phosphatase 83 (39-117) U/L Total Protein 7.5 (6.5-8.0) g/dL Albumin 4.6 (3.5-5.0) g/dL Lipase 496 H 278 H (8-78) U/L Urine Color Yellow Urine Appearance Clear Urine pH 5.0 (5.0-9.0) Ur Specific [place] 1.020 (1.005-1.025) Urine Protein Negative (Neg-Trace) mg/dL Urine Glucose (UA) Negative (Negative) mg/dL Urine Ketones Negative (Negative) mg/dL Urine Blood Negative (Negative) Urine Nitrite Negative (Negative) Ur Leukocyte Esterase Negative (Negative) Urine RBC 0-2 (0-2) /HPF Urine WBC 0-5 (0-5) /HPF Ur Squamous Epith Cells 0-2 (0-2) /HPF Urine Bacteria None Seen (None Seen) Hyaline Casts 0-2 (0-2) /LPF Ethyl Alcohol 11 mg/dL Independent Interpretation I performed an independent interpretation of an: CT Scan (no acute cause of pain) Radiology Impression Discussion of test interpretation with radiology: I have reviewed the radiologist's reading. External Record Review External record reviewed: Outpatient record Prescription Management I considered prescription management with: Pain Medication and Other Discharge Plan Discharge Clinical Impression: Abdominal pain Patient Disposition: Home, Self-Care Instructions: Abdominal Pain (ED) Additional Instructions: labs reassuring return for any worsening symptoms or concerns rest and stay hydrated follow up with our GI team call to schedule appointment Findings: The lung bases are clear except for single bandlike left basilar atelectasis/scarring Unremarkable gallbladder and solid organs. No urolithiasis. Rectosigmoid anastomosis. Colonic diverticulosis without diverticulitis. No significant change in appearance ofl femorofemoral and aorto-left femoral stents Postsurgical midline ventral abdominal wall changes with a few small uncomplicated paramidline small ventral abdominal wall hernias. No appendicitis. No acute fracture. IMPRESSION: Colonic diverticulosis without diverticulitis. Prescriptions: New dicyclomine 20 mg tablet 20 mg PO BID PRN (Reason: abdominal pain) Qty: 14 0RF No Action atorvastatin 20 mg tablet 1 tab PO DAILY amitriptyline 25 mg tablet 1 tab PO BEDTIME folic acid 1 mg tablet 1 tab PO DAILY ergocalciferol (vitamin D2) [Vitamin D2] 1,250 mcg (50,000 unit) capsule 1,250 mcg PO QMONTH albuterol sulfate 90 mcg/actuation HFA aerosol inhaler 1 puff inhalation BID fluticasone propionate [Flovent HFA] 110 mcg/actuation HFA aerosol inhaler 1 puff inhalation BID Januvia 100 mg tablet 1 tab PO DAILY Eliquis 5 mg tablet 1 tab PO BID Trulicity 0.75 mg/0.5 mL pen injector 4.5 mg subcut DAILY dicyclomine 20 mg tablet 20 mg PO QID PRN (Reason: abdominal pain) Qty: 20 0RF cyclobenzaprine 5 mg tablet 5 mg PO TID PRN (Reason: muscle spasm) 7 Days Qty: 21 0RF prednisone 20 mg tablet 20 mg PO DAILY 7 Days Qty: 7 0RF Referrals: [facility] [Provider Group, Gastroenterology] Referral Note: call to schedule appointment Niharika Jose DO [Primary Care Provider, Internal Medicine] Interventions: ED Discharge Assessment Last Done: 06/06/25 10:19 Discharge Date/Time: 06/06/25 10:20 Print Language: Sinhala
[2025-06-06 05:39] LABS: Hematocrit 47.3 % (42.0-52.0); Hemoglobin 16.7 g/dl (14.0-18.0); Imm Gran Abs Auto 0.02 X10*3/uL (0.00-0.03); Imm Gran Pct Auto 0.3 % (0.0-0.4); Lymphocytes Absolute Auto 1.6 X10*3/uL (1.2-4.9); Mean Corpuscular HGB Conc 35.3 g/dl (31.0-36.0); Mean Corpuscular Hemoglobin 33.4 pg (27.0-33.0); Mean Corpuscular Volume 94.6 fL (80.0-98.0); NRBC Abs Auto 0.000 X10*3/uL (0.0-0.012); NRBC Pct Auto 0.0 /100WBC (0.0-0.2); Platelet Count 103 X10*3/uL (160-400); Red Blood Count 5.00 X10*6/uL (4.60-5.80); White Blood Count 6.9 X10*3/uL (4.8-10.8)
[2025-06-06 05:54] LABS: Alanine Aminotransferase 34 U/L (0-40); Albumin Level 4.6 g/dL (3.5-5.0); Alkaline Phosphatase 83 U/L (39-117); Anion Gap 12 (12-20); Aspartate Amino Transferase 26 U/L (5-37); Blood Urea Nitrogen 16 mg/dL (9-16); Calcium 9.3 mg/dL (8.4-10.2); Carbon Dioxide 24 mmol/L (22-29); Chloride 107 mmol/L (96-108); Creatinine Clr Calc Pharmacy 46.7; Estimated Glomerular Filt Rate 45; Potassium 4.2 mmol/L (3.3-5.1); Sodium 139 mmol/L (135-145); Total Protein 7.5 g/dL (6.5-8.0)
[2025-06-06 05:58] LABS: Appearance Urine Clear; Glucose Urine UA Negative (Negative); PH 5.0 (5.0-9.0); Specific Gravity - Urine 1.020 (1.005-1.025)
[2025-06-06 06:08] LABS: Lipase 496 U/L (8-78)
[2025-06-06 06:28] VITALS: BP 115/72; PULSE 77; RESP 14; TEMP 36.8; O2SAT 94
--- OUTSIDE RECORDS SUMMARY | 2025-06-06 06:51 | XMS_ITS ---
Author Name [facility] Organization Unknown Care Team Organization Name Specialty Phone Email Start Date End Da te [facility] 09/19/20222023
--- OUTSIDE RECORDS SUMMARY | 2025-06-06 06:51 | XMS_ITS | Clinical Summary ---
Author Organization [place] [address] [facility] Building Address [address] [place] [address] Phone Care Team Providers Care Thread Inspector Name Role Phone Niharika Jose DO Primary Care Provider [phone] Allergies Active Allergy Reactions Criticality Noted Date Comments Clopidogrel Headache 04/18/2017 Metformin Diarrhea 04/14/2022 Medications bimatoprost (Lumigan) 0.01 % ophthalmic drops 1 Active latanoprost (XALATAN) 0.005 % ophthalmic solution Place 1 Drop into both eyes daily. 1 Active Simbrinza 1-0.2 % ophthalmic suspension 1 drop. 5 Active folic acid (FOLVITE) 1 mg tablet TAKE ONE TABLET BY MOUTH EVERY DAY 90 tablet 1 5 Active Eliquis 5 mg tablet TAKE ONE TABLET BY MOUTH TWICE A DAY 180 tablet 1 5 Active Arnuity Ellipta 100 mcg/actuation blister with device inhaler INHALE 1 PUFF INTO THE LUNGS DAILY 30 each 2 5 Active lisinopriL (PRINIVIL,ZEST RIL) 2.5 mg tablet TAKE ONE TABLET BY MOUTH EVERY DAY 90 tablet 5 Active atorvastatin (LIPITOR) 20 mg tablet TAKE 1 TABLET BY MOUTH DAILY 90 tablet 5 Active amitriptyline (ELAVIL) 25 mg tablet TAKE ONE TABLET BY MOUTH AT BEDTIME 90 tablet 5 Active dulaglutide (Trulicity) 4.5 mg/0.5 mL pen injector injection INJECT 4.5 MG UNDER THE SKIN ONCE A WEEK 2 mL 2 5 Active lisinopriL (PRINIVIL,ZEST RIL) 2.5 mg tablet TAKE ONE TABLET BY MOUTH EVERY DAY 90 tablet 1 5 05/12/20 25 Discontinued amitriptyline (ELAVIL) 25 mg tablet TAKE ONE TABLET BY MOUTH AT BEDTIME 90 tablet 1 5 05/12/20 25 Discontinued atorvastatin (LIPITOR) 20 mg tablet TAKE ONE TABLET BY MOUTH DAILY. 90 tablet 1 5 05/12/20 25 Discontinued dulaglutide (Trulicity) 4.5 mg/0.5 mL pen injector injection INJECT 4.5MG (0.5ML) UNDER THE SKIN ONCE A WEEK 2 mL 2 5 05/29/20 25 Discontinued Active Problems Problem Noted Date Diagnosed Date Type 2 diabetes mellitus wit h stage 3a chronic kidney disease, without long-term current use of insulin [place] [place] [facility] [place] 03/17/2025 Diabetes mellitus type 2, co ntrolled, with complications ([facility] [place], [facility] V28) 10/07/2024 Esophageal reflux 10/07/2024 Class 1 obesity due to excess calories in adult 07/04/2021 Benign hypertension with CKD (chronic kidney disease) stage III ([facility] V24, [facility] V28) 04/15/2021 Glaucoma 02/16/2021 Diverticulosis 09/22/2020 Basal cell carcinoma (BCC) 08/20/2020 Overview (10/07/2024): Biopsy with Dr. Mac, forehead 07/2020 B12 deficiency 07/12/2018 Folic acid deficiency 07/12/2018 Type 2 diabetes mellitus wit h diabetic neuropathy, without long-term current use of insulin ([facility] [place], [facility] V28) 04/11/2018 Gastroesophageal reflux disease without esophagi tis 07/16/2015 Pulmonary nodules/lesions, multiple 06/25/2015 Overview (10/07/2024): 6 mm RLL nodule, [address] 07/22 - stable 12/23, 08/22, 5-15 Aortic ectasia ([facility] V24) 03/29/2015 Overview (10/07/2024): Ectatic (4.1cm), plan for repeat scan 03/27 Inguinal hernia 09/10/2014 Chronic back pain 07/10/2014 COPD (chronic obstructive pu lmonary disease) [place] [place] [facility] [place] 07/10/2014 Overview (10/07/2024): Emphysema on CT chest Incisional hernia 07/10/2014 Neuropathy 07/10/2014 Peripheral vascular disease ([facility] [place] 2013 Overview (10/07/2024): [facility], Dr. Spivey Encounters Date Type Department Care Team Description 05/14/2025 Telephone Internal Medicine - [address] [phone] Magdalena Duncan MA Medicare Annual Wellness Visit Subsequent (AWV DUE 2024) 03/17/2025 4:00 PM EDT Office Visit Nephrology - [address] [phone] Sy Holman MD CKD stage 3a, GFR 45-59 ml/min ([facility] [place] [facility] [place] (Primary Dx); Benign hypertension with CKD (chronic kidney disease) stage III ([facility] [place] [facility] [place] Type 2 diabetes mellitus with stage 3a chronic kidney disease, without long-term current use of insulin ([facility] [place] [facility] [place] from Last 3 Months Immunizations Name Administration Dates Next Due Influenza Quadravalent, 0.5m l (Fluad) 65yo and older 07/21/2021 Influenza Quadravalent, 0.5m l (Fluzone High-dose) 65yo and older 08/18/2023,08/08/2022 Influenza trivalent, 0.5mL ( Fluad) 65yo and older 08/03/2020,09/10/2014,1954 Influenza trivalent, 0.5mL, preservative free (Fluarix; FluLaval; Fluzone) ages 6mo and older (Afluria) 3 years and older 08/22/2019,08/12/2018,08/15/2016 Influenza, Unspecified 08/13/2023,08/14/2022,02/2021 Moderna SARS-CoV-2 COVID-19, mRNA, LNP-S, preservative free 02/23/2022 Pfizer SARS-CoV-2 COVID-19, mRNA, LNP-S, preservative free 09/13/2021 Pneumococcal conjugate 13 va lent (Prevnar 13, PCV13) 2mo and older 10/06/2020,10/07/2019 Pneumococcal polysaccharide 23 valent (Pneumovax 23) 2yo and older 01/04/2022,08/15/2016 Tdap Tetanus diptheria acell ular pertussis (Boostrix; Adacel) 7yo and older 04/11/2018 Surgical History Surgery Date Site/Laterality Comments OTHER SURGICAL HISTORY PROCEDURE: ---- OTHER ----; COMMENT: iliac and femoral bypass OTHER SURGICAL HISTORY PROCEDURE: ---- OTHER ----; COMMENT: chapin cysts removed OTHER SURGICAL HISTORY PROCEDURE: ---- OTHER ----; COMMENT: plastic surgery for ears HERNIA REPAIR Bilateral PROCEDURE: HISTORICAL HERNIA REPAIR/ING OTHER SURGICAL HISTORY PROCEDURE: ---- OTHER ----; COMMENT: incisional hernia COLONOSCOPY 11/22/2015 PROCEDURE: HISTORICAL COLONOSCOPY; COMMENT: right colon 5 mm polyp; sigmoid colon bx: Suggestive of healing ischemia, polyp was a tubular adenoma. ABDOMINAL SURGERY 07/2017 PROCEDURE: HISTORICAL ABDOMINAL SURGERY; COMMENT: partial colectomy for recurrent diverticulitis COLONOSCOPY 12/11/2018 PROCEDURE: HISTORICAL COLONOSCOPY; COMMENT: [facility]; random bx and 2 small polyps: random bx normal; one polyp hyperplastic; one was a tubular adenoma. CATARACT EXTRACTION 2019 Bilateral PROCEDURE: HISTORICAL CATARACT REMOVAL EYE SURGERY 2018 PROCEDURE: HISTORICAL EYE SURGERY; COMMENT: increased pressure/channels COLONOSCOPY 09/22/2020 PROCEDURE: HISTORICAL COLONOSCOPY; COMMENT: tubular adenomas and diverticulosis Medical History Medical History Date Comments Diabetes mellitus type 2, co ntrolled, with complications (CMS/HCC V24, CMS/HCC V28) DX:Diabetes mellitus type 2, controlled, with complications (HCC) Bronchitis DX:Bronchitis Esophageal reflux DX:Esophageal reflux History of colon polyps 09/22/2020 DX:Histo ry of colon polyps Diverticulosis 09/22/2020 DX:Diverticulosi s Glaucoma 02/16/2021 DX:Glaucoma Ischemic colitis (CMS/HCC V24) 11/24/2015 D X:Ischemic colitis (HCC); COMMENT: Symptomatic onset October,. Colonoscopy findings consistent, CT angio showed no flow through the AUDREY. Diverticulitis 06/18/2017 DX:Diverticuliti s; COMMENT: recurrent Family History Medical History Relation Name Comments No Known Problems Aunt No Known Problems Brother Coronary artery disease Father Lung cancer Father No Known Problems Maternal Grandfather No Known Problems Maternal Grandmother Breast cancer Mother Coronary artery disease Mother No Known Problems Other No Known Problems Paternal Grandfather No Known Problems Paternal Grandmother No Known Problems Sister No Known Problems Uncle Blindness Neg Hx Cataracts Neg Hx Colon cancer Neg Hx Diabetes Neg Hx Glaucoma Neg Hx Hypertension Neg Hx Macular degeneration Neg Hx Strabismus Neg Hx Relation Name Status Comments Aunt Brother Father Maternal Grandfather Maternal Grandmother Mother Other Paternal Grandfather Paternal Grandmother Sister Uncle Social History Tobacco Use Types Packs/Day Years Used Date Smoking Tobacco: Former Cigarettes 1 51.7 0 11/12/1969 - 08/12/2021 Smokeless Tobacco: Former Quit: 12/24/2019 Tobacco Cessation:Counseling Given: Not Answered Alcohol Use Standard Drinks/Week Comments No 0 (1 standard drink = 0.6 oz pur e alcohol) Sex and Gender Information Value Date Recorded Sex Assigned at Male 11/25/2024 12:13 PM EST Legal Sex Male 8:47 AM EST Gender Identity Male 11/25/2024 12:13 PM EST Sexual Orientation Straight 11/25/2024 12 :13 PM EST Obstetrics History Last Filed Vital Signs Vital Sign Reading Time Taken Comments Blood Pressure 136/81 03/17/2025 3:51 PM EDT Pulse 85 03/17/2025 3:51 PM EDT Temperature 36.8 C (98.2 F) 02/10/2025 5:09 PM EDT Respiratory Rate - - Oxygen Saturation 98% 02/10/2025 5:09 PM EDT Inhaled Oxygen Concentration - - Weight 87.2 kg (192 lb 3.2 oz) 03/17/2025 3:51 P M EDT Height 170.2 cm (5' 7 ) 09/04/2024 2:50 PM EDT Body Mass Index 30.1 09/04/2024 2:50 PM EDT Plan of Treatment Upcoming Encounters Date Type Department Care Team (Late st Contact Info) Description 06/19/2025 11:00 AM EDT Office Visit Internal Medicine - [facility] [address] [place] [address] LoialineNiharika vitale DO [address] [place] [address] 10/20/2025 3:15 PM EST Office Visit Nephrology - [facility] [address] [place] [address] Sy Holman MD [address] [place] [id number] Health Maintenance Due Date Last Done Comments Diabetes: Annual Foot Exam 1964 Zoster Vaccines (1 of 2) 1973 RSV Immunization Adult Patients (1 - Risk 60-74 years 1-dose series) 2014 Abdominal Aortic Aneurysm (AAA) Screen 10/21/2022 Falls Risk Assessment 10/21/2022 Medicare Annual Wellness Visit 10/21/2022 Social Influencers of Health Screening 10/21/2022 Depression Screening 11/12/2024 COVID-19 Vaccine (9 - Mixed Product risk season) 2025 09/09/2024, 08/18/2023, 03/06/2023, Additional history exists Diabetes: Annual Urine Albumin-Creatinine Ratio (uACR) 06/24/2025 06/24/2024 Diabetes: Blood Sugar Control Test (HGBA1C) 07/05/2025 01/05/2025, 09/09/2024, 09/09/2024 Influenza Vaccine (#1) 2025 , 08/18/2023, 08/13/2023, Additional history exists Diabetes: Annual GFR (Glomerular Filtration Rate) 09/09/2025 09/09/2024, 09/09/2024 Hypertension/CHF/CAD Annual BMP Blood Test 09/09/2025 09/09/2024, 09/09/2024 Colorectal Cancer Screening: Colonoscopy 09/22/2025 09/22/2020 Lung Cancer Screening (Low Dose CT) 11/27/2025 11/27/2024, 11/22/2023, 11/15/2022, Additional history exists Diabetes: Annual Retina Eye Exam 12/13/2025 12/13/2024 DTaP,Tdap,and Td Vaccines (2 - Td or Tdap) 04/11/2028 04/11/2018 Cholesterol Screening (Lipid Panel) 09/09/2029 09/09/2024, 09/09/2024 Hepatitis C Screening Completed 09/10/2014 Pneumococcal Vaccine: 50+ Years Completed 01/04/2022, 10/06/2020, 10/07/2019, Additional history exists HIB Vaccines Aged Out No longer eligi ble based on patient's age to complete this topic HPV Vaccines Aged Out No longer eligi ble based on patient's age to complete this topic Hepatitis A Vaccines Aged Out No long er eligible based on patient's age to complete this topic Hepatitis B Vaccines Aged Out No long er eligible based on patient's age to complete this topic IPV Vaccines Aged Out No longer eligi ble based on patient's age to complete this topic MMR Vaccines Aged Out No longer eligi ble based on patient's age to complete this topic Meningococcal ACWY Vaccine Aged Out N o longer eligible based on patient's age to complete this topic Meningococcal B Vaccine Aged Out No l onger eligible based on patient's age to complete this topic RSV Immunization Patients Under 20 months Aged Out No longer eligible based on patient's age to complete this topic Varicella Vaccines Aged Out No longer eligible based on patient's age to complete this topic Procedures Procedure Name Priority Date/Time Associated Diagnosis Comments HEMOGLOBIN A1C Routine 01/05/2025 10:09 AM EST Type 2 diabetes mellitus with diabetic neuropathy, without long-term current use of insulin ([facility] V24, [facility] V28) EXTERNAL DIABETIC RETINA EYE EXAM 12/13/2024 CT LUNG SCREENING Routine 11/27/2024 8:0 5 AM EST Encounter for screening for malignant neoplasm of respiratory organs Nicotine dependence, cigarettes, uncomplicated ANNUAL BMP BLOOD TEST Routine 09/09/2024 LIPID PANEL Routine 09/09/2024 URINE ALBUMIN CREATININE RATIO Routine 06/24/2024 COLONOSCOPY Routine 09/22/2020 HEPATITIS C SCREENING Routine 09/10/2014 from Last 3 Months or Most Recently Relevant to Health Maintenance Results * (ABNORMAL) Hemoglobin A1c (01/05/2025 10:09 AM EST) Hemoglobin A1C 6.8(H) <6.5 % LAB CHEMISTRY METHOD 01/05/2025 1:56 PM EST [facility] Mean Bld Glu Estim. 148 mg/dL LAB CHEMISTRY METHOD 01/05/2025 1:56 PM EST [facility] Blood Venous blood specimen / Unknown Venipuncture / Unknown 01/05/2025 10:09 AM EST 01/05/2025 10:09 AM EST Svetlana Husain NP LAB BLOOD ORDERABLES Final Resul t [facility] [address] [place] [address], [place] [phone] * External Diabetic Retina Eye Exam Report (12/13/2024) Anatomical Region Laterality Modality Ultrasound us Provider [facility] IMG US PROCEDURES Final Result * CT Lung Screening (11/27/2024 8:05 AM EST) Anatomical Region Laterality Modality Chest Computed Tomogra phy 12/04/2024 1:14 PM EST Impressions 12/04/2024 1:59 PM EST No new or suspicious pulmonary nodules. Lung RADS 2-benign. Recommend continued screening with low-dose chest CT in 12 months. -------- FINAL REPORT -------- Dictated By: MIKAEL HOUSE Dictated Date: 12/04/2024 13:14 ET Assigned Physician: MIKAEL HOUSE Reviewed and Electronically Signed By: MIKAEL HOUSE Signed Date: 12/04/2024 13:59 ET Workstation ID: [id number] Transcribed By: Self Edit Transcribed Date: 12/04/2024 13:14 ET Narrative 12/04/2024 1:59 PM EST PROCEDURE: Chest CT INDICATION: Lung cancer screening, current smoker, 53 pack year smoking history TECHNIQUE: Chest CT without contrast. Multi planar reformats were created and interpreted. The examination was performed utilizing dose reduction techniques. Total DLP 177 COMPARISON: 11/21/2023 FINDINGS: LUNGS/PLEURA: Central airways are patent. Emphysema with chronic bronchitis. Trace mucous plugging in the left lower lobe airways. 7 mm right lower lobe nodule is stable compared to prior. Additional 4 mm nodule in the right lower lobe is also stable compared to prior. 3 mm left upper lobe nodule is stable compared to prior. 2 mm right upper lobe nodule is stable compared to prior. Smaller nodules throughout the lungs are also unchanged. No new or suspicious pulmonary nodules. No pleural effusion or pneumothorax. MEDIASTINUM: Thyroid gland is unremarkable. No mediastinal or hilar lymphadenopathy. Cardiac chambers are normal in size. No pericardial effusion. Severe coronary calcifications. Esophagus is normal. CHEST WALL: No axillary lymphadenopathy or superficial hematoma. UPPER ABDOMEN:The visualized portions of the upper abdomen are unremarkable. BONES: No acute fracture. Scattered degenerative changes seen throughout the bones. Procedure Note Mikael House MD - 12/04/2024 PROCEDURE: Chest CT INDICATION: Lung cancer screening, current smoker, 53 pack year smokinghistory TECHNIQUE: Chest CT without contrast. Multi planar reformats were createdand interpreted. The examination was performed utilizing dose reductiontechniques. Total DLP 177 COMPARISON: 11/21/2023 FINDINGS: LUNGS/PLEURA: Central airways are patent. Emphysema with chronicbronchitis. Trace mucous plugging in the left lower lobe airways. 7 mmright lower lobe nodule is stable compared to prior. Additional 4 mmnodule in the right lower lobe is also stable compared to prior. 3 mmleft upper lobe nodule is stable compared to prior. 2 mm right upper lobenodule is stable compared to prior. Smaller nodules throughout the lungsare also unchanged. No new or suspicious pulmonary nodules. No pleuraleffusion or pneumothorax. MEDIASTINUM: Thyroid gland is unremarkable. No mediastinal or hilarlymphadenopathy. Cardiac chambers are normal in size. No pericardialeffusion. Severe coronary calcifications. Esophagus is normal. CHEST WALL: No axillary lymphadenopathy or superficial hematoma. UPPER ABDOMEN:The visualized portions of the upper abdomen areunremarkable. BONES: No acute fracture. Scattered degenerative changes seen throughoutthe bones. IMPRESSION: No new or suspicious pulmonary nodules. Lung RADS 2-benign. Recommendcontinued screening with low-dose chest CT in 12 months. -------- FINAL REPORT -------- Dictated By: MIKAEL HOUSE Dictated Date: 12/04/2024 13:14 ET Assigned Physician: MIKAEL HOUSE Reviewed and Electronically Signed By: MIKAEL HOUSE Signed Date: 12/04/2024 13:59 ET Workstation ID: [id number] Transcribed By: Self Edit Transcribed Date: 12/04/2024 13:14 ET Result [facility] Cole Leyva MD IMG CT PROCEDURES Final Result * Annual BMP Blood Test (09/09/2024) [facility] Annual BMP Blood Test abstracted Result [facility] HEALTH MAINTENANCE Final Result * Lipid panel (09/09/2024) [facility] LDL/HDL Ratio 2 0 - 4 Triglycerides 86 0 - 150 mg/dL Cholesterol 132 0 - 200 mg/dL HDL 63 >=40 mg/dL LDL Cholesterol 52 0 - 100 mg/dL Blood Venous blood specimen / Unknown Result [facility] LAB BLOOD ORDERABLES Kaci l Result * Urine Albumin Creatinine Ratio (06/24/2024) [facility] Urine Albumin Creatinine Ratio abstracted Result [facility] HEALTH MAINTENANCE Final Result * Colonoscopy (09/22/2020) [facility] Colonoscopy no interpretation , abstracted Anatomical Region Laterality Modality Other Result [facility] Adis CROUCH HEALTH MAINTENANCE Final Result * Hepatitis C Screening (09/10/2014) Hepatitis C Screening abstracted Historical Provider HEALTH MAINTENANCE Final Result from Last 3 Months or Most Recently Relevant to Health Maintenance Insurance MEDICARE [facility] Advance Directives Documents on File Type Date Recorded 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 Health Care Decision (hx) 07/26/2017 AD CARRIZALES DIRECTIVE Health Care Decision (hx) 07/26/2017 AD CARRIZALES DIRECTIVE Health Care Decision (hx) 07/26/2017 AD CARRIZALES DIRECTIVE Health Care Decision (hx) 07/26/2017 AD CARRIZALES DIRECTIVE Health Care Decision (hx) 07/26/2017 AD CARRIZALES DIRECTIVE Health Care Decision (hx) 07/26/2017 AD CARRIZALES DIRECTIVE Health Care Decision (hx) 07/26/2017 AD CARRIZALES DIRECTIVE Health Care Decision (hx) 07/26/2017 AD CARRIZALES DIRECTIVE Health Care Decision (hx) 07/26/2017 AD CARRIZALES DIRECTIVE Care Teams Thread Inspector Relationship Specialty Start Date End Date Niharika Jose DO [facility] [place] [address] PCP - General Internal Medicine 09/04/24
[2025-06-06 07:25] VITALS: RESP 18
[2025-06-06 08:05] VITALS: BP 124/74; PULSE 82; RESP 16; TEMP 36.6; O2SAT 98
[2025-06-06 09:42] LABS: Lipase 278 U/L (8-78)
[2025-06-06 10:19] VITALS: BP 133/82; PULSE 63; RESP 18; TEMP 36.4; O2SAT 98
== END 2025-06-06 10:20 | disposition home or self-care (01) ==
PROVIDERS: Emergency Medicine; Emergency Provider Emergency Medicine; PCP Internal Medicine
DX: R10.32 Left lower quadrant pain (principal); K57.30 Diverticulosis of large intestine without perforation or abscess without bleeding; E11.9 Type 2 diabetes mellitus without complications; Z86.718 Personal history of other venous thrombosis and embolism; Z79.01 Long term (current) use of anticoagulants; Z79.02 Long term (current) use of antithrombotics/antiplatelets; Z79.899 Other long term (current) drug therapy; Z79.85 Long-term (current) use of injectable non-insulin antidiabetic drugs; Z87.891 Personal history of nicotine dependence
CPT/HCPCS: 36415; 74176; 80053; 80307; 81001; 83690; 85025; 99284